=== PATIENT | female | born 1955 | race American Indian/Alaskan Native ===

== ENCOUNTER 2018-02-27 08:23 | Inpatient (IN) | payer MEDICARE ==
[2018-02-27] MEDS ORDERED: MOTRIN PO ONE ×2 (09:20→09:22)
--- NOTE | 2018-02-27 09:22 | Emergency Department Report ---
Blank Doc - Documentation Documentation: Patient is a 62-year-old female who is presenting with right calf pain. Patient states that for the past 3 days she's had some achiness in the posterior right calf. Patient denies any trauma fevers or chills. Patient denies any chest pain but does state she has some mild shortness of breath which is chronic. Patient will be moved to results waiting will have ultrasound of her right lower extremity performed.
--- NOTE | 2018-02-27 10:45 | Emergency Department Report ---
ED Shortness of Breath HPI - General Chief Complaint: Extremity Injury, Lower Stated Complaint: RIGHT LEG PAIN Time Seen by Provider: 02/27/18 09:17 Source: patient Mode of arrival: Ambulatory Limitations: No Limitations - History of Present Illness Initial Comments: Previously healthy 62-year-old woman, presents with 3-4 day history of spontaneous onset of pain and swelling and right lower extremity, particularly calf, as well as middle and proximal thigh. She also has some shortness of breath, even little bit at rest, but worsening when she is up and mildly exertional, such as walking. She has no prior history of venous thromboembolism , pulmonary disease, asthma, no history of smoking, no cardiac history, no stroke history, and no history of diabetes. Patient had gastric bypass surgery in 2009, with lowest weight attained 298, and patient had GJ revision Sep 2017 for persistent reflux. patient weight at that time 289 lbs. . Patient describes discomfort as a moderate ache, in 4-5 out of 10, which is constant, exacerbated by movement, not relieved by anything him a such as use of heating pads. Pain does not radiate. She has not had any fever chills or diaphoresis. Past medical history significant primarily for chronic lower back pain, with some radicular symptoms as well. MD Complaint: shortness of breath Onset/Timin -: days(s) Pain Scale: 5 Quality: aching Consistency: constant Improves With: nothing Worsens With: exertion Associated Symptoms: lower extremity pain Treatments Prior to Arrival: none - Related Data Home Oxygen Therapy: No Home Medications Medication Instructions Recorded Confirmed Last Taken Alendronate Sodium 70 mg PO QWEEK 07/22/17 09/28/17 Unknown Cyanocobalamin (Vitamin B-12) 2,500 mcg PO DAILY 07/22/17 09/28/17 Unknown [Vitamin B12] Ferrous Sulfate [Feosol] 325 mg PO QDAY 07/22/17 09/28/17 Unknown Gabapentin 600 mg PO TID 07/22/17 09/28/17 Unknown HYDROcodone/APAP 7.5-325 [[place] 1 each PO Q6HR PRN 07/22/17 09/28/17 Unknown 7.5/325] Multivitamin [Multiple Vitamins] 1 each PO DAILY 07/22/17 09/28/17 Unknown Nortriptyline HCl 25 mg PO BID 07/22/17 09/28/17 Unknown Omeprazole 40 mg PO DAILY PRN 07/22/17 09/28/17 Unknown Simvastatin 20 mg PO DAILY 07/22/17 09/28/17 Unknown Tizanidine HCl 2 mg PO BID 07/22/17 09/28/17 Unknown Triamter/Hctz 37.5-25 mg 1 tab PO QDAY 07/22/17 09/28/17 Unknown [Maxzide-25] Allergies Allergy/AdvReac Type Severity Reaction Status Date / Time No Known Allergies Allergy Verified 09/28/17 15:45 ED Review of Systems ROS: Stated complaint: RIGHT LEG PAIN Other details as noted in HPI Comment: All other systems reviewed and negative Constitutional: denies: chills, fever ENT: denies: ear pain, throat pain Respiratory: see HPI, shortness of breath, SOB with exertion. denies: cough, wheezing Cardiovascular: dyspnea on exertion. denies: chest pain, syncope, paroxysmal nocturnal dyspnea Endocrine: no symptoms reported Gastrointestinal: denies: abdominal pain, nausea, diarrhea Genitourinary: denies: urgency, dysuria, discharge Musculoskeletal: as per HPI, other (swelling and pain, right lower extremity) Skin: denies: rash, lesions Neurological: denies: headache, weakness, paresthesias Psychiatric: denies: anxiety, depression Hematological/Lymphatic: denies: easy bleeding, easy bruising ED Past Medical Hx - Past Medical History Hx Hypertension: Yes Hx CVA: Yes Hx Arthritis: Yes Hx HIV: No Additional medical history: Low back pain, radicular symptoms - Surgical History Additional Surgical History: partial hysterectomy; bariatric 2012 bilateral knee replacement surgery - Social History Smoking Status: Former Smoker Substance Use Type: None - Medications Home Medications: Home Medications Medication Instructions Recorded Confirmed Last Taken Type Alendronate Sodium 70 mg PO QWEEK 07/22/17 09/28/17 Unknown History Cyanocobalamin (Vitamin B-12) 2,500 mcg PO DAILY 07/22/17 09/28/17 Unknown History [Vitamin B12] Ferrous Sulfate [Feosol] 325 mg PO QDAY 07/22/17 09/28/17 Unknown History Gabapentin 600 mg PO TID 07/22/17 09/28/17 Unknown History HYDROcodone/APAP 7.5-325 [[place] 1 each PO Q6HR PRN 07/22/17 09/28/17 Unknown History 7.5/325] Multivitamin [Multiple Vitamins] 1 each PO DAILY 07/22/17 09/28/17 Unknown History Nortriptyline HCl 25 mg PO BID 07/22/17 09/28/17 Unknown History Omeprazole 40 mg PO DAILY PRN 07/22/17 09/28/17 Unknown History Simvastatin 20 mg PO DAILY 07/22/17 09/28/17 Unknown History Tizanidine HCl 2 mg PO BID 07/22/17 09/28/17 Unknown History Triamter/Hctz 37.5-25 mg 1 tab PO QDAY 07/22/17 09/28/17 Unknown History [Maxzide-25] ED Physical Exam - General Limitations: No Limitations General appearance: alert, in no apparent distress - Head Head exam: Present: atraumatic, normocephalic - Eye Eye exam: Present: PERRL, EOMI - ENT ENT exam: Present: normal exam - Neck Neck exam: Present: normal inspection. Absent: tenderness - Respiratory Respiratory exam: Present: normal lung sounds bilaterally. Absent: respiratory distress, wheezes, rales, rhonchi, chest wall tenderness - Cardiovascular Cardiovascular Exam: Present: regular rate, normal rhythm. Absent: systolic murmur, diastolic murmur, rubs, gallop - GI/Abdominal GI/Abdominal exam: Present: soft, normal bowel sounds. Absent: tenderness - Rectal Rectal exam: Present: deferred - Expanded Lower Extremity Exam Right Hip exam: Present: full ROM. Absent: normal inspection (obese, adipose, secondary to prior morbid obesity), tenderness Upper Leg exam: Present: tenderness (mild to moderate, generalized, nonlocalized , without cords), swelling (difficult to assess, primarily obese secondary to adiposity of morbid obesity) Knee exam: Present: full ROM (prior TKA scar) Lower Leg exam: Present: tenderness (Per Rogel, no palpable cords). Absent: normal inspection (significant bilateral adiposity secondary to prior morbid obesity), palpable cord Foot/Toe exam: Present: normal inspection Neuro vascular tendon exam: Present: no vascular compromise. Absent: motor deficit, sensory deficit - Back Exam Back exam: Present: normal inspection, tenderness (bilateral lumbosacral myofascial tissue, mild) - Neurological Exam Neurological exam: Present: alert, oriented X3, CN II-XII intact. Absent: motor sensory deficit - Psychiatric Psychiatric exam: Present: normal affect, normal mood - Skin Skin exam: Present: warm, dry, intact ED Course Vital Signs 02/27/18 02/27/18 02/27/18 08:51 09:27 10:36 Temperature 36.6 C Pulse Rate 122 H 106 H Respiratory 18 16 22 Rate Blood Pressure 144/88 Blood Pressure 144/88 [Right] O2 Sat by Pulse 98 96 Oximetry 02/27/18 10:51 Temperature Pulse Rate Respiratory Rate Blood Pressure 126/78 Blood Pressure [Right] O2 Sat by Pulse 77 L Oximetry - Reevaluation(s) Reevaluation #1: 02/27/18 12:27 Patient is stable, but still symptomatic with shortness of breath, no chest pain , but does report arm discomfort from infusion of potassium, which was treated with increase of fluid rate, as well as local intravenous anesthesia with 20 mg of 2% lidocaine by local injection by myself for direct comfort. However, there was significant leakage, name was considered unstable, infusion was discontinued, and right antecubital IV was discontinued. 02/27/18 12:34 This is - Consultations Consultation #1: 02/27/18 12:28 Dr. Richardson, hospitalist diamond sander, contacted for findings of bilateral pulmonary emboli with significant clot burden, as well as right heart strain and hypokalemia. Consultation #2: 02/27/18 12:42 This VANDA Bello, for Dr. Morgan Barcenas, Vascular surgeon, with consult for evaluation of possible intravascular lysis. ED Medical Decision Making - Lab Data Result diagrams: 02/27/18 10:45 02/27/18 10:45 - EKG Data -: EKG Interpreted by Or EKG shows normal: sinus rhythm (93 bpm), axis (left axis deviation, -40), intervals (nonspecific intraventricular conduction delay, QRS interval 115 ms, QT interval prolonged at 528 ms corrected.), QRS complexes (nonspecific IVCD), ST-T waves (no significant ST or T-wave changes.) Rate: normal - Radiology Data Radiology results: report reviewed (initial duplex Doppler scan of lower extremity was significant for extensive acute thrombus throughout the venous system of the lower leg.) Chest x-ray shows no acute cardiopulmonary abnormality, no lobar consolidation, no pulmonary vascular congestion. CT angiography of the chest was positive for bilateral pulmonary emboli, with extensive findings in both lung phipps, which represented a significant burden, but there was no finding of acute saddle embolism in the pulmonary arch. - Medical Decision Making This patient with extensive acute embolism of the right lower extremity, as well as bilateral pulmonary emboli, will need hospitalization for acute treatment, and will be admitted to the hospitalist, and consultation initiated with vascular surgery for possible advanced clot lysis. Patient also has significant hypokalemia, with potassium 2.6, which also requires replenishment as well. Patient has findings of heart strain with elevated BNP, elevated troponin level, with a classification of submassive bilateral pulmonary emboli. Vital signs remained stable, and patient has good oxygenation with no acute respiratory distress. - Differential Diagnosis venous thromboembolism, Critical Care Time: Yes (massive pulmonary embolism, heart failure) Critical care time in (mins) excluding proc time.: 30 Critical care attestation.: If time is entered above; I have spent that time in minutes in the direct care of this critically ill patient, excluding procedure time. Critical Care Time: 30 minutes of critical care time was provided and diagnosing and stabilizing this patient's condition with altered diagnosis of extensive thromboembolism with right lower extremity, with extensive bilateral ulnar emboli and clot burden, with evidence of right heart strain. No billable procedures were performed during this patient encounter. ED Disposition Clinical Impression: Venous thromboembolism (VTE) in patient 61 to 74 years of age, Pulmonary embolism, bilateral, Troponin level elevated, Elevated brain natriuretic peptide (BNP) level Disposition: 09 OP ADMIT IP TO THIS HOSP Is pt being admited?: Yes Does the pt Need Aspirin: No Condition: Stable Instructions: Venous Thromboembolism (ED) Referrals: Emily HUA [Other] - 3-5 Days Time of Disposition: 12:30
[2018-02-27 10:48] LABS: Basophils % (Auto) 0.2 % (0.0-1.8); Eosinophils % (Auto) 0.1 % (0.0-4.3); Hematocrit 42.8 % (30.3-42.9); Hemoglobin 13.7 gm/dl (10.1-14.3); Lymphocytes # (Auto) 1.4 K/mm3 (1.2-5.4); Lymphocytes % (Auto) 14.9 % (13.4-35.0); Mean Corpuscular HGB Conc 32 % (30-34); Mean Corpuscular Hemoglobin 29 pg (28-32); Mean Corpuscular Volume 90 fl (79-97); Monocytes # (Auto) 0.7 K/mm3 (0.0-0.8); Platelet Count 180 K/mm3 (140-440); Red Blood Count 4.73 M/mm3 (3.65-5.03); Red Cell Distribution Width 15.3 % (13.2-15.2)
[2018-02-27 10:54] LABS: INR 1.11 (0.87-1.13); Partial Thromboplastin Time 30.2 Sec. (24.2-36.6)
[2018-02-27 11:09] LABS: BUN/Creatinine Ratio 30; Blood Urea Nitrogen 15 mg/dL (7-17); Calcium 7.9 mg/dL (8.4-10.2); Hemolysis Index 76
--- NOTE | 2018-02-27 11:20 | XRay Report ---
ROUTINE CHEST, TWO VIEWS: HISTORY: Difficulty breathing. The trachea, heart, mediastinal contour, lung phipps and bony thorax are unremarkable. IMPRESSION: Unremarkable chest x-ray.
[2018-02-27 11:35] LABS: Chol/HDL Ratio 2.03 %
[2018-02-27] MEDS ORDERED: KCL 10MEQ/100ML 10 MEQ/100 ML BAG IV ONE (11:39)
[2018-02-27] MEDS ORDERED: D5W/0.45% NACL/KCL 20 MEQ 20 MEQ/1,000 ML BAG IV SCH (12:00)
--- NOTE | 2018-02-27 12:15 | Cat Scan Report ---
CTA CHEST: HISTORY: Dyspnea, DVT. COMPARISON: none. TECHNIQUE: Helical CT in 1.25mm intervals following IV contrast. Pulmonary embolus protocol. Sagittal and coronal reformatted images. Rotational MIP images. FINDINGS: Contrast bolus is satisfactory. Moderate near occlusive and nonocclusive emboli are identified in the second and third order arterial branches leading to all lobes of both lungs. No saddle embolus. Thyroid gland: Normal. Tracheobronchial tree: Normal. Esophagus: Normal. Heart: The heart is normal size overall although mild dilatation of the right ventricle is suspected. Pericardium: Normal. Mediastinum: Normal. Lung Bravo: Normal. Pleural Spaces: Normal. Musculoskeletal: Normal. IMPRESSION: Positive for pulmonary embolus as described above. These findings were discussed with Dr. Landon in the emergency department at 1203 hrs.
[2018-02-27] MEDS ORDERED: XYLOCAINE CARDIAC IV ONE (12:20)
[2018-02-27] MEDS ORDERED: TYLENOL PO PRN (12:46)
[2018-02-27] MEDS ORDERED: ZOFRAN IV PRN (12:46)
[2018-02-27] MEDS ORDERED: SODIUM CHLORIDE FLUSH SYRINGE 10 ML IV PRN ×2 (12:46→21:40)
--- NOTE | 2018-02-27 13:42 | Consultation ---
History of Present Illness - Reason for Consult Consult date: 02/27/18 sub-massive pulmonary embolism - History of Present Illness Patient presents with a several week history of worsening leg pain that developed into shortness of breath with exertion. She presents to the ER today complaining of worsening right leg pain and on CT scan was found to have a sub- massive pulmonary embolus with an elevated RV LV ratio, troponin leak and satting on room air 70%. Additionally, the patient is tachycardic. Past History Past Surgical History: bowel surgery Social history: no significant social history Family history: no significant family history Medications and Allergies Allergies Allergy/AdvReac Type Severity Reaction Status Date / Time No Known Allergies Allergy Verified 09/28/17 15:45 Home Medications Medication Instructions Recorded Confirmed Last Taken Type Alendronate Sodium 70 mg PO QWEEK 07/22/17 09/28/17 Unknown History Cyanocobalamin (Vitamin B-12) 2,500 mcg PO DAILY 07/22/17 09/28/17 Unknown History [Vitamin B12] Ferrous Sulfate [Feosol] 325 mg PO QDAY 07/22/17 09/28/17 Unknown History Gabapentin 600 mg PO TID 07/22/17 09/28/17 Unknown History HYDROcodone/APAP 7.5-325 [[place] 1 each PO Q6HR PRN 07/22/17 09/28/17 Unknown History 7.5/325] Multivitamin [Multiple Vitamins] 1 each PO DAILY 07/22/17 09/28/17 Unknown History Nortriptyline HCl 25 mg PO BID 07/22/17 09/28/17 Unknown History Omeprazole 40 mg PO DAILY PRN 07/22/17 09/28/17 Unknown History Simvastatin 20 mg PO DAILY 07/22/17 09/28/17 Unknown History Tizanidine HCl 2 mg PO BID 07/22/17 09/28/17 Unknown History Triamter/Hctz 37.5-25 mg 1 tab PO QDAY 07/22/17 09/28/17 Unknown History [Maxzide-25] Active Meds: Active Medications Acetaminophen (Tylenol) 650 mg PO Q4H PRN PRN Reason: Pain MILD(1-3)/Fever >100.5/TERRY Potassium Chloride/Dextrose/Sod Cl (D5w/0.45% Nacl/Kcl 20 Meq) 20 meq in 1,000 mls @ 75 mls/hr IV DIRECT DAVIE Stop: 02/27/18 14:00 Last Admin: 02/27/18 12:29 Dose: 75 mls/hr Ondansetron HCl (Zofran) 4 mg IV Q8H PRN PRN Reason: Nausea And Vomiting Sodium Chloride (Sodium Chloride Flush Syringe 10 Ml) 10 ml IV BID DAVIE Sodium Chloride (Sodium Chloride Flush Syringe 10 Ml) 10 ml IV PRN PRN PRN Reason: LINE FLUSH Review of Systems All systems: negative Exam - Constitutional Vitals: Temp Pulse Resp BP Pulse Ox 98.7 F 106 H 22 126/78 77 L 02/27/18 08:51 02/27/18 10:36 02/27/18 10:36 02/27/18 10:51 02/27/18 10:51 General appearance: Present: no acute distress - EENT Eyes: Present: PERRL ENT: hearing intact - Neck Neck: Present: supple, normal ROM - Respiratory Respiratory effort: normal - Cardiovascular Rhythm: regular - Extremities Extremities: no ischemia - Abdominal General gastrointestinal: Present: deferred - Rectal Rectal Exam: deferred - Psychiatric Psychiatric: appropriate mood/affect, cooperative - Neurologic Neurologic: no focal deficits Results - Labs CBC & Chem 7: 02/27/18 10:45 02/27/18 10:45 Labs: Abnormal lab results 02/27/18 02/27/18 02/27/18 Range/Units 10:45 10:45 10:45 RDW 15.3 H (13.2-15.2) % Seg Neutrophils % 77.8 H (40.0-70.0) % Sodium 147 H (137-145) mmol/L Potassium 2.6 L* (3.6-5.0) mmol/L Creatinine 0.5 L (0.7-1.2) mg/dL Calcium 7.9 L (8.4-10.2) mg/dL Troponin T 0.039 H (0.00-0.029) ng/mL NT-Pro-B Natriuret Pep 4052 H (0-900) pg/mL LDL Cholesterol Direct 45 L (50-130) mg/dL - Imaging and Cardiology CT scan - chest: report reviewed, image reviewed Assessment and Plan Patient with a history of submassive pulmonary embolism. Discussion with patient regarding thrombolytics catheter placement risks and benefits. She has no recent surgeries or history of CVA. No history of cancer.
[2018-02-27] MEDS ORDERED: SUBLIMAZE ONE (14:00)
[2018-02-27] MEDS ORDERED: VERSED ONE (14:00)
[2018-02-27] MEDS ORDERED: HEPARIN/ 0.45% NACL-25,000 UNIT/500 ML 25,000 UNIT/500 ML BAG SHEATH SCH ×2 (14:00)
[2018-02-27] MEDS ORDERED: NACL 0.9% 1000 ML 1,000 ML EKOSCLUMEN SCH ×2 (14:00)
[2018-02-27] MEDS ORDERED: NACL 0.9% 1000 ML 1,000 ML IV SCH (14:00)
[2018-02-27] MEDS ORDERED: NACL 0.9% 1000 ML 1,000 ML SHEATH SCH ×2 (14:00)
[2018-02-27] MEDS ORDERED: HEPARIN/NS 5000 UNIT/500ML(CATH LAB) 1,000 ML IR ONE (14:00)
[2018-02-27] MEDS ORDERED: XYLOCAINE 1% 20 mL ONE (14:00)
[2018-02-27] MEDS ORDERED: WATER FOR INJ (PF) 10 ML ONE (14:01)
[2018-02-27] MEDS ORDERED: HEPARIN/ 0.45% NACL-25,000 UNIT/500 ML 50,000 UNIT/1,000 ML BAG ONE (14:41)
[2018-02-27] MEDS ORDERED: NACL 0.9% 1000 ML 2,000 ML ONE (14:41)
[2018-02-27] MEDS: HEPARIN 10,000 UNITS/10 ML ONE ×2 (14:56→15:04)
[2018-02-27] MEDS: CATHFLO ONE ×2 (14:57→15:03)
[2018-02-27] MEDS ORDERED: CATHFLO 10 MG in NACL 0.9% 250ML 250 ML EKOSDLUMEN SCH (15:00)
--- NOTE | 2018-02-27 15:13 | Operative Report ---
Operative Report Operative Report: EXAM: PULMONARY ANGIOGRAPHY AND PLACEMENT OF BILATERAL THROMBOLYTICS CATHETERS CLINICAL INDICATION: PATIENT WITH SUBMASSIVE PULMONARY EMBOLUS DATE: 02/27/2018 PROCEDURE: Following an explanation of the risks, benefits and alternatives; written informed consent was obtained. The patient was brought to the angiographic suite and placed in supine position on the examination table. Initial ultrasound evaluation of the leg demonstrated a patent right common femoral vein. The patient's right leg and groin were prepped and draped in the usual sterile fashion. 1% lidocaine was used for anesthesia. Under ultrasound guidance, the right common femoral vein was cannulated with a 7 cm 18-gauge needle. A 0.035 guidewire was advanced centrally. A second access site was obtained under ultrasound guidance in the common femoral vein 2 cm below the first access site and a second 0.035 guidewire advanced centrally. Following removal of the needle, 6 Hebrew sheaths were placed over both access wires. A JR4 coronary guided cath was advanced over the 0.035 guidewire and together the guidewire and catheter advanced to the right atrium. The guidewire was advanced through the tricuspid valve and the catheter advanced over the guidewire. The catheter was then directed towards the main pulmonary artery and the guidewire and catheter advanced into the main pulmonary artery and under fluoroscopy, advanced into the left lower lobe pulmonary artery. The guidewire was removed. There was a gentle injection of contrast to document appropriate positioning. Guidewire was reinserted and the catheter removed. The thrombolytics catheter was then advanced over the guidewire and positioned with the tip placed in the left lower lobe pulmonary artery with proximal aspect of the left main pulmonary artery. The infusion wire was then advanced through the catheter locked in place JR4 was then advanced over the second guidewire and together the guidewire and catheter advanced in a similar fashion as above with the guidewire and catheter being advanced into the right lower lobe pulmonary artery. Contrast was again injected gently to document appropriate positioning. The catheter was removed over the guidewire and the thrombolytics catheter advanced over the guidewire to position the tip in the right lower lobe pulmonary artery and proximal aspect in the right main pulmonary artery. The guidewire was removed and the infusion wire advanced through the catheter and locked in place. The sheaths were securely fasten the skin surface using 2-0 Ethilon suture. The thrombolytics catheters were then securely fastened to the sheaths using 2- 0 Ethilon suture and sterile dressings applied over the entire area. Both catheters were primed using 2 mg of TPA and pulse sheaths were flushed using 2000 units of heparin. The patient tolerated the procedure well. There were no immediate post procedure complications. Conscious sedation was performed under the guidance of radiologic nursing. Continuous cardiopulmonary monitoring was utilized IMPRESSION: 1) Pulmonary angiography which on the left demonstrated significant thrombus extending into the left lower lobe pulmonary arteries. 2) Placement of bilateral 12 cm infusion length 106 cm total length EKOS catheters.
--- NOTE | 2018-02-27 15:13 | History and Physical Report ---
History of Present Illness Date of examination: 02/27/18 Date of admission: 02/27/18 Chief complaint: Chief complaint: Shortness of breath for 4 days Right lower extremity swelling for 4 days History of present illness: History of Present Illness: Previously healthy 62-year-old woman, presents with 3-4 day history of spontaneous onset of pain and swelling and right lower extremity, particularly calf, as well as middle and proximal thigh. She also has some shortness of breath, even little bit at rest, but worsening when she is up and mildly exertional, such as walking. She has no prior history of venous thromboembolism , pulmonary disease, asthma, no history of smoking, no cardiac history, no stroke history, and no history of diabetes. Patient had gastric bypass surgery in 2009, with lowest weight attained 298, and patient had GJ revision Sep 2017 for persistent reflux. patient weight at that time 289 lbs. .Patient describes discomfort as a moderate ache, in 4-5 out of 10, which is constant, exacerbated by movement, not relieved by anything him a such as use of heating pads. Pain does not radiate. She has not had any fever chills or diaphoresis. Past medical history significant primarily for chronic lower back pain, with some radicular symptoms as well. MD Complaint: shortness of breath Onset/Timin-: days(s) Pain Scale: 5 Quality: aching Consistency: constant Improves With: rest Worsens With: exertion Associated Symptoms: lower extremity pain Treatments Prior to Arrival: none Past Medical History Hx Hypertension: Yes Hx CVA: Yes Hx Arthritis: Yes Additional medical history: Low back pain, radicular symptoms Surgical History Additional Surgical History: partial hysterectomy; bariatric 2012 bilateral knee replacement surgery Social History Smoking Status: Former Smoker Substance Use Type: None Family history Hypertension Medications Home Medications: Home Medications Medication Instructions Recorded Confirmed Last Taken Type Alendronate Sodium 70 mg PO QWEEK 07/22/17 09/28/17 Unknown History Cyanocobalamin (Vitamin B-12) 2,500 mcg PO DAILY 07/22/17 09/28/17 Unknown History [Vitamin B12] Ferrous Sulfate [Feosol] 325 mg PO QDAY 07/22/17 09/28/17 Unknown History Gabapentin 600 mg PO TID 07/22/17 09/28/17 Unknown History HYDROcodone/APAP 7.5-325 [[place] 1 each PO Q6HR PRN 07/22/17 09/28/17 Unknown History 7.5/325] Multivitamin [Multiple Vitamins] 1 each PO DAILY 07/22/17 09/28/17 Unknown History Nortriptyline HCl 25 mg PO BID 07/22/17 09/28/17 Unknown History Omeprazole 40 mg PO DAILY PRN 07/22/17 09/28/17 Unknown History Simvastatin 20 mg PO DAILY 07/22/17 09/28/17 Unknown History Tizanidine HCl 2 mg PO BID 07/22/17 09/28/17 Unknown History Triamter/Hctz 37.5-25 mg 1 tab PO QDAY 07/22/17 09/28/17 Unknown History [Maxzide-25] Review of Systems ROS: Stated complaint: RIGHT LEG PAIN Other details as noted in HPI Comment: All other systems reviewed and negative Constitutional: denies: chills, fever ENT: denies: ear pain, throat pain Respiratory: see HPI, shortness of breath, SOB with exertion. denies: cough, wheezing Cardiovascular: dyspnea on exertion. denies: chest pain, syncope, paroxysmal nocturnal dyspnea Endocrine: no symptoms reported Gastrointestinal: denies: abdominal pain, nausea, diarrhea Genitourinary: denies: urgency, dysuria, discharge Musculoskeletal: as per HPI, other (swelling and pain, right lower extremity) Skin: denies: rash, lesions Neurological: denies: headache, weakness, paresthesias Psychiatric: denies: anxiety, depression Hematological/Lymphatic: denies: easy bleeding, easy bruising Past History Past Surgical History: bowel surgery Social history: no significant social history Family history: no significant family history Medications and Allergies Allergies Allergy/AdvReac Type Severity Reaction Status Date / Time No Known Allergies Allergy Verified 09/28/17 15:45 Home Medications Medication Instructions Recorded Confirmed Last Taken Type Alendronate Sodium 70 mg PO QWEEK 07/22/17 02/27/18 02/24/18 History Ferrous Sulfate [Feosol] 325 mg PO QDAY 07/22/17 02/27/18 Unknown History Gabapentin 1,200 mg PO HS 07/22/17 02/27/18 Unknown History Multivitamin [Multiple Vitamins] 1 each PO DAILY 07/22/17 02/27/18 Unknown History Nortriptyline HCl 50 mg PO HS 07/22/17 02/27/18 Unknown History Omeprazole 40 mg PO DAILY PRN 07/22/17 02/27/18 Unknown History Simvastatin 20 mg PO DAILY 07/22/17 02/27/18 Unknown History Tizanidine HCl 2 mg PO BID PRN 07/22/17 02/27/18 Unknown History Furosemide [Lasix TAB] 40 mg PO QDAY 02/27/18 02/27/18 Unknown History Gabapentin [Neurontin] 600 mg PO QAM 02/27/18 02/27/18 Unknown History Potassium Chloride [Klor-Con 8] 8 meq PO QDAY 02/27/18 02/27/18 Unknown History Active Meds: Active Medications Acetaminophen (Tylenol) 650 mg PO Q4H PRN PRN Reason: Pain MILD(1-3)/Fever >100.5/TERRY Alteplase, Recombinant 10 mg/ (Sodium Chloride) 250 mls @ 10 mls/hr EKOSDLUMEN DIRECT DAVIE Alteplase, Recombinant 10 mg/ (Sodium Chloride) 250 mls @ 10 mls/hr IV DIRECT DAVIE Heparin Sodium/Sodium Chloride (Heparin/ 0.45% Nacl-25,000 Unit/500 Ml) 25,000 unit in 500 mls @ 10 mls/hr SHEATH DIRECT DAVIE; Protocol Heparin Sodium/Sodium Chloride (Heparin/ 0.45% Nacl-25,000 Unit/500 Ml) 25,000 unit in 500 mls @ 10 mls/hr SHEATH DIRECT DAVIE; Protocol Sodium Chloride (Nacl 0.9% 1000 Ml) 1,000 mls @ 30 mls/hr IV DIRECT DAVIE Sodium Chloride (Nacl 0.9% 1000 Ml) 1,000 mls @ 30 mls/hr SHEATH DIRECT DAVIE Sodium Chloride (Nacl 0.9% 1000 Ml) 1,000 mls @ 35 mls/hr EKOSCLUMEN DIRECT DAVIE Sodium Chloride (Nacl 0.9% 1000 Ml) 1,000 mls @ 30 mls/hr SHEATH DIRECT DAVIE Sodium Chloride (Nacl 0.9% 1000 Ml) 1,000 mls @ 35 mls/hr EKOSCLUMEN DIRECT DAVIE Ondansetron HCl (Zofran) 4 mg IV Q8H PRN PRN Reason: Nausea And Vomiting Sodium Chloride (Sodium Chloride Flush Syringe 10 Ml) 10 ml IV BID DAVIE Sodium Chloride (Sodium Chloride Flush Syringe 10 Ml) 10 ml IV PRN PRN PRN Reason: LINE FLUSH Exam - Physical Exam Narrative exam: Lying in bed in mild distress - Constitutional Vitals: Temp Pulse Resp BP Pulse Ox 98.7 F 106 H 20 144/88 92 02/27/18 14:00 02/27/18 14:00 02/27/18 14:00 02/27/18 14:00 02/27/18 14:00 General appearance: Present: no acute distress, well-nourished - EENT Eyes: Present: PERRL ENT: hearing intact, clear oral mucosa - Neck Neck: Present: supple, normal ROM - Respiratory Respiratory effort: normal Respiratory: bilateral: CTA - Cardiovascular Heart rate: 96 Rhythm: regular Heart Sounds: Present: S1 & S2. Absent: rub, click - Extremities Extremities: no ischemia, pulses intact, pulses symmetrical, No edema, abnormal (right lower extremity is swollen from her mid thigh to ankle) Peripheral Pulses: within normal limits - Abdominal General gastrointestinal: Present: soft, non-tender, non-distended, normal bowel sounds Female genitourinary: Present: normal - Integumentary Integumentary: Present: clear, warm, dry - Musculoskeletal Musculoskeletal: gait normal, strength equal bilaterally - Psychiatric Psychiatric: appropriate mood/affect, intact judgment & insight - Neurologic Neurologic: CNII-XII intact, moves all extremities Results - Labs CBC & Chem 7: 02/27/18 10:45 02/27/18 16:35 Labs: Laboratory Last Values WBC 9.5 K/mm3 (4.5-11.0) 02/27/18 10:45 RBC 4.73 M/mm3 (3.65-5.03) 02/27/18 10:45 Hgb 13.7 gm/dl (10.1-14.3) 02/27/18 10:45 Hct 42.8 % (30.3-42.9) 02/27/18 10:45 MCV 90 fl (79-97) 02/27/18 10:45 MCH 29 pg (28-32) 02/27/18 10:45 MCHC 32 % (30-34) 02/27/18 10:45 RDW 15.3 % (13.2-15.2) H 02/27/18 10:45 Plt Count 180 K/mm3 (140-440) 02/27/18 10:45 Lymph % (Auto) 14.9 % (13.4-35.0) 02/27/18 10:45 [place] % (Auto) 7.0 % (0.0-7.3) 02/27/18 10:45 Eos % (Auto) 0.1 % (0.0-4.3) 02/27/18 10:45 Baso % (Auto) 0.2 % (0.0-1.8) 02/27/18 10:45 Lymph # 1.4 K/mm3 (1.2-5.4) 02/27/18 10:45 [place] # 0.7 K/mm3 (0.0-0.8) 02/27/18 10:45 Eos # 0.0 K/mm3 (0.0-0.4) 02/27/18 10:45 Baso # 0.0 K/mm3 (0.0-0.1) 02/27/18 10:45 Seg Neutrophils % 77.8 % (40.0-70.0) H 02/27/18 10:45 Seg Neutrophils # 7.3 K/mm3 (1.8-7.7) 02/27/18 10:45 PT 14.9 Sec. (12.2-14.9) 02/27/18 10:45 INR 1.11 (0.87-1.13) 02/27/18 10:45 APTT 30.2 Sec. (24.2-36.6) 02/27/18 10:45 Sodium 147 mmol/L (137-145) H 02/27/18 10:45 Potassium 2.6 mmol/L (3.6-5.0) L* 02/27/18 10:45 Chloride 103.5 mmol/L (98-107) 02/27/18 10:45 Carbon Dioxide 29 mmol/L (22-30) 02/27/18 10:45 Anion Gap 17 mmol/L 02/27/18 10:45 BUN 15 mg/dL (7-17) 02/27/18 10:45 Creatinine 0.5 mg/dL (0.7-1.2) L 02/27/18 10:45 Estimated GFR > 60 ml/min 02/27/18 10:45 BUN/Creatinine Ratio 30 % 02/27/18 10:45 Glucose 71 mg/dL (65-100) 02/27/18 10:45 Calcium 7.9 mg/dL (8.4-10.2) L 02/27/18 10:45 Troponin T 0.039 ng/mL (0.00-0.029) H 02/27/18 10:45 NT-Pro-B Natriuret Pep 4052 pg/mL (0-900) H 02/27/18 10:45 Triglycerides 101 mg/dL (2-149) 02/27/18 10:45 Cholesterol 110 mg/dL (50-199) 02/27/18 10:45 LDL Cholesterol Direct 45 mg/dL (50-130) L 02/27/18 10:45 HDL Cholesterol 54 mg/dL (40-59) 02/27/18 10:45 Cholesterol/HDL Ratio 2.03 % 02/27/18 10:45 - Imaging and Cardiology EKG: report reviewed Imaging and Cardiology: EKG Data EKG Interpreted by Sc EKG shows normal: sinus rhythm (93 bpm), axis (left axis deviation, -40), intervals (nonspecific intraventricular conduction delay, QRS interval 115 ms, QT interval prolonged at 528 ms corrected.), QRS complexes (nonspecific IVCD), ST-T waves (no significant ST or T-wave changes.) Rate: normal CT angio chest: FINDINGS: Contrast bolus is satisfactory. Moderate near occlusive and nonocclusive emboli are identified in the second and third order arterial branches leading to all lobes of both lungs. No saddle embolus. Thyroid gland: Normal. Tracheobronchial tree: Normal. Esophagus: Normal. Heart: The heart is normal size overall although mild dilatation of the right ventricle is suspected. Pericardium: Normal. Mediastinum: Normal. Lung Bravo: Normal. Pleural Spaces: Normal. Musculoskeletal: Normal IMPRESSION: Positive for pulmonary embolus as described above. These findings were discussed with Dr. Landon in the emergency department at 1203 hrs. Right lower extremity venous duplex scan RLE VENOUS DUPLEX COMPLETED. [facility] LAB PRELIMINARY REPORT; ACUTE DVT NOTED IN RT. DST SFV, POP V , PTV AND PERONEAL V'S. PHYSICIANS REPORT TO FOLLOW...(RSK) Initialized on 02/27/18 09:56 - END OF NOTE Assessment and Plan Assessment and plan: The high probability of a clinically significant, sudden or life threatening deterioration of the [Pulmonary, cadiac, renal] system(s) required my full and direct attention, intervention and personal management. The aggregate critical care time was [45] minutes. This time is in addition to time spent performing reported procedures but includes the following: [x] Data Review and interpretation [x] Patient assessment and monitoring of vital signs [x] Documentation [x] Medication orders and management Advance Directives: Yes (full code) Plan of care discussed with patient/family: Yes - Patient Problems (1) Pulmonary embolism, bilateral Current Visit: Yes Status: Acute Plan to address problem: Patient has bilateral acute pulmonary embolism Patient initiated on IV heparin bolus and IV heparin standard drip. Patient taken to [facility] for----PULMONARY ANGIOGRAPHY AND PLACEMENT OF BILATERAL THROMBOLYTICS CATHETERS CLINICAL INDICATION: PATIENT WITH SUBMASSIVE PULMONARY EMBOLUS by Dr. Schultz (2) Venous thromboembolism (VTE) in patient 61 to 74 years of age Current Visit: Yes Status: Acute Plan to address problem: Patient on IV heparin drip (3) Hypokalemia Current Visit: Yes Status: Acute Plan to address problem: Supplemented (4) Troponin level elevated Current Visit: Yes Status: Acute Plan to address problem: Secondary to right ventricular strain Cardiac ischemia unlikely We'll get cardiology consult (5) Hyperlipidemia Current Visit: Yes Status: Chronic Qualifiers: Hyperlipidemia type: mixed hyperlipidemia Qualified Code(s): E78.2 - Mixed hyperlipidemia Plan to address problem: Continue statins (6) GERD (gastroesophageal reflux disease) Current Visit: Yes Status: Chronic Qualifiers: Esophagitis presence: without esophagitis Qualified Code(s): K21.9 - Gastro -esophageal reflux disease without esophagitis Plan to address problem: continue PPIs (7) Hypertension Current Visit: Yes Status: Chronic Qualifiers: Hypertension type: essential hypertension Qualified Code(s): I10 - Essential (primary) hypertension Plan to address problem: Continue antihypertensives (8) Peripheral neuropathy Current Visit: Yes Status: Chronic Qualifiers: Peripheral neuropathy type: polyneuropathy, unspecified Qualified Code(s): G62.9 - Polyneuropathy, unspecified Plan to address problem: Continue gabapentin (9) Osteoporosis Current Visit: Yes Status: Chronic Qualifiers: Osteoporosis type: age-related Plan to address problem: Continue alendronate every weekly (10) Anemia Current Visit: Yes Status: Chronic Qualifiers: Anemia type: iron deficiency Plan to address problem: continue ferrous sulfate (11) Depression Current Visit: Yes Status: Chronic Qualifiers: Depression Type: unspecified Qualified Code(s): F32.9 - Major depressive disorder, single episode, unspecified Plan to address problem: Continue nortriptyline (12) Lumbar radiculopathy, chronic Current Visit: Yes Status: Chronic Plan to address problem: Continue [place] (13) Elevated brain natriuretic peptide (BNP) level Current Visit: Yes Status: Acute Plan to address problem: We'll get cardiology consult and echocardiogram (14) DVT prophylaxis Current Visit: Yes Status: Acute Plan to address problem: Patient on heparin drip
[2018-02-27] MEDS: CATHFLO 10 MG in NACL 0.9% 250ML 250 ML IV SCH ×2 (15:50→16:00)
[2018-02-27] MEDS ORDERED: K-DUR PO ONE ×2 (17:27→18:18)
[2018-02-27] MEDS: DILAUDID IV PRN ×2 (21:15→21:35)
[2018-02-27] MEDS ORDERED: XANAX PO PRN (21:40)
[2018-02-27] MEDS ORDERED: AMBIEN PO PRN (21:40)
[2018-02-27] MEDS: KCL 10MEQ/100ML 10 MEQ/100 ML BAG IV SCH ×2 (21:40→23:56)
[2018-02-27] MEDS ORDERED: TIZANIDINE HCL 2 MG PO PRN (21:43)
[2018-02-27] MEDS ORDERED: NON-FORMULARY (Omeprazole [Omeprazole] 40 MG) PO PRN (21:43)
[2018-02-27] MEDS ORDERED: PROTONIX PO PRN (21:54)
[2018-02-27] MEDS ORDERED: ZANAFLEX PO PRN (21:55)
[2018-02-27] MEDS ORDERED: GABAPENTIN 1200 MG PO SCH (22:00)
[2018-02-27] MEDS ORDERED: SODIUM CHLORIDE FLUSH SYRINGE 10 ML IV SCH (22:00)
[2018-02-27] MEDS ORDERED: D5NS 1,000 ML IV SCH (22:00)
[2018-02-27] MEDS: SODIUM CHLORIDE FLUSH SYRINGE 10 ML IV SCH (22:30)
[2018-02-27] MEDS: NEURONTIN PO SCH (23:45)
[2018-02-27] MEDS: FEOSOL PO SCH (23:45)
[2018-02-27] MEDS: LASIX PO SCH (23:46)
[2018-02-27] MEDS: PAMELOR PO SCH (23:47)
[2018-02-28] MEDS: KCL 10MEQ/100ML 10 MEQ/100 ML BAG IV SCH ×4 (01:13→09:48)
[2018-02-28] MEDS: DILAUDID IV PRN ×3 (01:17→10:02)
[2018-02-28 05:27] LABS: Basophils % (Auto) 0.1 % (0.0-1.8); Eosinophils # (Auto) 0.1 K/mm3 (0.0-0.4); Eosinophils % (Auto) 0.9 % (0.0-4.3); Hematocrit 40.3 % (30.3-42.9); Hemoglobin 12.9 gm/dl (10.1-14.3); Lymphocytes # (Auto) 2.3 K/mm3 (1.2-5.4); Lymphocytes % (Auto) 27.3 % (13.4-35.0); Mean Corpuscular HGB Conc 32 % (30-34); Mean Corpuscular Hemoglobin 30 pg (28-32); Mean Corpuscular Volume 92 fl (79-97); Monocytes # (Auto) 0.7 K/mm3 (0.0-0.8); Monocytes % (Auto) 7.8 % (0.0-7.3); Platelet Count 150 K/mm3 (140-440); Red Blood Count 4.36 M/mm3 (3.65-5.03); Red Cell Distribution Width 16.1 % (13.2-15.2)
[2018-02-28 05:37] LABS: Alanine Aminotransferase 24 units/L (7-56); Albumin 2.2 g/dL (3.9-5); BUN/Creatinine Ratio 28; Blood Urea Nitrogen 11 mg/dL (7-17); Calcium 7.2 mg/dL (8.4-10.2); Hemolysis Index 35
[2018-02-28 05:38] LABS: INR 1.19 (0.87-1.13)
[2018-02-28 05:57] LABS: Partial Thromboplastin Time 166.3 Sec. (24.2-36.6)
--- NOTE | 2018-02-28 07:12 | Consultation ---
History of Present Illness Consult date: 02/28/18 Requesting physician: CHAVEZ GRAYSON Reason for consult: pulmonary embolism History of present illness: Previously healthy 62-year-old woman, presents with 3-4 day history of spontaneous onset of pain and swelling and right lower extremity, particularly calf, as well as middle and proximal thigh. She also has some shortness of breath, even little bit at rest, but worsening when she is up and mildly exertional, such as walking. She has no prior history of venous thrombo- embolism, pulmonary disease, asthma, no history of smoking, no cardiac history, no stroke history, and no history of diabetes. Patient had gastric bypass surgery in 2009, with lowest weight attained 298, and patient had GJ revision Sep 2017 for persistent reflux. patient weight at that time 289 lbs. Past medical history significant primarily for chronic lower back pain, with some radicular symptoms as well. She was hypoxic at presentation, with oxygen saturations in the 70s on pulse oximetry and found to have sub-massive pulmonary embolism on CT scan. She is s/p pulmonary angiography and placement of bilateral thrombolytic catheters. Past History Past Surgical History: bowel surgery Social history: no significant social history Family history: no significant family history Medications and Allergies Allergies Allergy/AdvReac Type Severity Reaction Status Date / Time No Known Allergies Allergy Verified 09/28/17 15:45 Home Medications Medication Instructions Recorded Confirmed Last Taken Type Alendronate Sodium 70 mg PO QWEEK 07/22/17 02/27/18 02/24/18 History Ferrous Sulfate [Feosol] 325 mg PO QDAY 07/22/17 02/27/18 Unknown History Gabapentin 1,200 mg PO HS 07/22/17 02/27/18 Unknown History Multivitamin [Multiple Vitamins] 1 each PO DAILY 07/22/17 02/27/18 Unknown History Nortriptyline HCl 50 mg PO HS 07/22/17 02/27/18 Unknown History Omeprazole 40 mg PO DAILY PRN 07/22/17 02/27/18 Unknown History Simvastatin 20 mg PO DAILY 07/22/17 02/27/18 Unknown History Tizanidine HCl 2 mg PO BID PRN 07/22/17 02/27/18 Unknown History Furosemide [Lasix TAB] 40 mg PO QDAY 02/27/18 02/27/18 Unknown History Gabapentin [Neurontin] 600 mg PO QAM 02/27/18 02/27/18 Unknown History Potassium Chloride [Klor-Con 8] 8 meq PO QDAY 02/27/18 02/27/18 Unknown History Active Meds: Active Medications Acetaminophen (Tylenol) 650 mg PO Q4H PRN PRN Reason: Pain MILD(1-3)/Fever >100.5/TERRY Acetaminophen/Hydrocodone Bitart (Kelly 5/325) 2 each PO Q6H PRN PRN Reason: Pain, Moderate (4-6) Alprazolam (Xanax) 0.25 mg PO Q8H PRN PRN Reason: Anxiety Ferrous Sulfate (Feosol) 325 mg PO QDAY DAVIE Last Admin: 02/27/18 23:45 Dose: 325 mg Furosemide (Lasix) 40 mg PO QDAY DAVIE Last Admin: 02/27/18 23:46 Dose: 40 mg Gabapentin (Neurontin) 1,200 mg PO QHS DAVIE Last Admin: 02/27/18 23:45 Dose: 1,200 mg Gabapentin (Neurontin) 600 mg PO QAM [facility] Hydromorphone HCl (Dilaudid) 2 mg IV Q3H PRN PRN Reason: Pain , Severe (7-10) Last Admin: 02/28/18 06:44 Dose: 2 mg Alteplase, Recombinant 10 mg/ (Sodium Chloride) 250 mls @ 10 mls/hr EKOSDLUMEN DIRECT DAVIE Last Admin: 02/27/18 15:45 Dose: 10 mls Alteplase, Recombinant 10 mg/ (Sodium Chloride) 250 mls @ 10 mls/hr IV DIRECT DAVIE Last Admin: 02/27/18 16:00 Dose: 14.8 mls/hr Heparin Sodium/Sodium Chloride (Heparin/ 0.45% Nacl-25,000 Unit/500 Ml) 25,000 unit in 500 mls @ 10 mls/hr SHEATH DIRECT DAVIE; Protocol Last Admin: 02/27/18 15:46 Dose: 10 mls Heparin Sodium/Sodium Chloride (Heparin/ 0.45% Nacl-25,000 Unit/500 Ml) 25,000 unit in 500 mls @ 10 mls/hr SHEATH DIRECT DAVIE; Protocol Last Admin: 02/27/18 15:48 Dose: 10 mls Sodium Chloride (Nacl 0.9% 1000 Ml) 1,000 mls @ 30 mls/hr IV DIRECT DAVIE Last Admin: 02/27/18 16:00 Dose: 30 mls/hr Sodium Chloride (Nacl 0.9% 1000 Ml) 1,000 mls @ 30 mls/hr SHEATH DIRECT DAVIE Sodium Chloride (Nacl 0.9% 1000 Ml) 1,000 mls @ 35 mls/hr EKOSCLUMEN DIRECT DAVIE Last Admin: 02/27/18 15:50 Dose: 30 mls Sodium Chloride (Nacl 0.9% 1000 Ml) 1,000 mls @ 30 mls/hr SHEATH DIRECT DAVIE Sodium Chloride (Nacl 0.9% 1000 Ml) 1,000 mls @ 35 mls/hr EKOSCLUMEN DIRECT DAVIE Last Admin: 02/27/18 15:52 Dose: 30 mls Potassium Chloride (Kcl 10meq/100ml) 10 meq in 100 mls @ 100 mls/hr IV DIRECT DAVIE Stop: 03/02/18 18:59 Last Admin: 02/28/18 02:29 Dose: 100 mls/hr Dextrose/Sodium Chloride (D5ns) 1,000 mls @ 42 mls/hr IV DIRECT DAVIE Potassium Chloride (Kcl 10meq/100ml) 10 meq in 100 mls @ 100 mls/hr IV Q1H DAVIE Stop: 02/28/18 08:59 Multivitamins (Theragran Tab) 1 each PO DAILY [facility] Nortriptyline HCl (Pamelor) 50 mg PO HS [facility] Last Admin: 02/27/18 23:47 Dose: 50 mg Ondansetron HCl (Zofran) 4 mg IV Q8H PRN PRN Reason: Nausea And Vomiting Pantoprazole Sodium (Protonix) 40 mg PO DAILY PRN PRN Reason: Acid reflux Potassium Chloride (K-Dur) 20 meq PO QDAY [facility] Pravastatin Sodium (Pravachol) 40 mg PO DAILY [facility] Sodium Chloride (Sodium Chloride Flush Syringe 10 Ml) 10 ml IV BID [facility] Last Admin: 02/27/18 22:30 Dose: 10 ml Sodium Chloride (Sodium Chloride Flush Syringe 10 Ml) 10 ml IV PRN PRN PRN Reason: LINE FLUSH Tizanidine HCl (Zanaflex) 2 mg PO BID PRN PRN Reason: Muscle Spasm Zolpidem Tartrate (Ambien) 5 mg PO QHS PRN PRN Reason: Sleeplessness Physical Examination Vital signs: Vital Signs Temp Pulse Resp BP Pulse Ox 98.7 F 122 H 18 144/88 98 02/27/18 08:51 02/27/18 08:51 02/27/18 08:51 02/27/18 08:51 02/27/18 08:51 Reviewed General appearance: asleep, other (obese) Eyes: non-icteric ENT: oropharynx moist Neck: supple, no lymphadenopathy, no JVD Effort: mildly labored Ascultation: Bilateral: clear Cardiovascular: regular rate and rhythm, other (S1,S2, no murmurms, gallops or rubs) Gastrointestinal: normoactive bowel sounds, soft, non-tender, non-distended Integumentary: normal, other (EKOS catherte in right femoral) Extremities: no cyanosis, no edema, pulses normal (with dopplers), no ischemia or petechiae Musculoskeletal: no deformities normal mental status, non-focal exam, pupils equal and round, motor strength normal and mood appropriate, affect normal Results - Laboratory Findings CBC and BMP: 02/28/18 04:00 02/28/18 04:00 PT/INR, D-dimer PT 15.8 Sec. (12.2-14.9) H 02/28/18 04:00 INR 1.19 (0.87-1.13) H 02/28/18 04:00 Abnormal lab findings: Abnormal Labs 02/27/18 02/27/18 02/27/18 10:45 10:45 10:45 RDW 15.3 H [place] % (Auto) Seg Neutrophils % 77.8 H PT INR APTT Fibrinogen Sodium 147 H Potassium 2.6 L* Creatinine 0.5 L Calcium 7.9 L AST Troponin T 0.039 H NT-Pro-B Natriuret Pep 4052 H Total Protein Albumin LDL Cholesterol Direct 45 L 02/27/18 02/27/18 02/28/18 14:45 16:35 04:00 RDW 16.1 H [place] % (Auto) 7.8 H Seg Neutrophils % PT INR APTT Fibrinogen 197 L Sodium Potassium 3.3 L D Creatinine Calcium AST Troponin T NT-Pro-B Natriuret Pep Total Protein Albumin LDL Cholesterol Direct 02/28/18 02/28/18 04:00 04:00 RDW [place] % (Auto) Seg Neutrophils % PT 15.8 H INR 1.19 H APTT 166.3 H* Fibrinogen Sodium Potassium 3.5 L Creatinine 0.4 L Calcium 7.2 L AST 187 H Troponin T NT-Pro-B Natriuret Pep Total Protein 5.0 L Albumin 2.2 L LDL Cholesterol Direct - Diagnostic Findings Chest x-ray: image reviewed Assessment and Plan -Acute hypoxemic respiratroy failure -Submassive pulmonary embolism -Obesity -Hypokalemia
[2018-02-28] MEDS: K-DUR PO SCH (09:46)
[2018-02-28] MEDS: SODIUM CHLORIDE FLUSH SYRINGE 10 ML IV SCH ×2 (09:47→21:02)
[2018-02-28] MEDS: LASIX PO SCH (09:47)
[2018-02-28] MEDS: THERAGRAN Tab PO SCH (09:47)
[2018-02-28] MEDS: NEURONTIN PO SCH ×2 (09:47→21:05)
[2018-02-28] MEDS: FEOSOL PO SCH (09:47)
[2018-02-28] MEDS ORDERED: NON-FORMULARY (Gabapentin [Neurontin] 600 MG) PO SCH (10:00)
[2018-02-28] MEDS ORDERED: NON-FORMULARY (Simvastatin [Simvastatin] 20 MG) PO SCH (10:00)
[2018-02-28] MEDS ORDERED: NON-FORMULARY (Multivitamin [Multiple Vitamins] 1 EACH) PO SCH (10:00)
[2018-02-28] MEDS: PRAVACHOL PO SCH (10:29)
[2018-02-28] MEDS ORDERED: HEPARIN/NS 5000 UNIT/500ML(CATH LAB) 1,000 ML IR ONE (12:46)
[2018-02-28] MEDS ORDERED: HEPARIN 10,000 UNITS/10 ML ONE (12:47)
[2018-02-28] MEDS ORDERED: NACL 0.9% 500 ML 500 ML ONE (13:27)
[2018-02-28] MEDS ORDERED: ANCEF/STERILE WATER 2 GM/20 ML 0 GM/0 ML SYRINGE IV ONE (13:27)
[2018-02-28] MEDS: SUBLIMAZE ONE ×2 (13:43→13:51)
[2018-02-28] MEDS: XYLOCAINE 2% INFILTRATI ONE ×2 (13:43→13:52)
[2018-02-28] MEDS: VERSED ONE ×2 (13:43→13:51)
--- NOTE | 2018-02-28 14:16 | Operative Report ---
Operative Report Operative Report: Date of procedure: 02/28/2018 Pre-operative diagnosis: [place] Pulmonary Embolus Status Post Bilateral Pulmonary Artery Thrombolysis Post-operative diagnosis: Same Procedure(s): 1. Follow-up Bilateral Pulmonary Artery Arteriograms 2. Removal of Bilateral Pulmonary Artery Catheters 3. Placement of [place] IVC Filter 4. Radiologic Supervision With Interpretation Surgeon: Morgan Barcenas MD Rotary Dump Operator: None Anesthesia: Local, IV sedation EBL: None Counts: Correct Complications: None Condition: Stable Findings: No Residual Pulmonary Artery Thrombus. Successful placement of IVC filter Specimen: None Indication: The patient is a 62-year-old female presented emergency department with shortness of breath and was found to have several pulmonary embolus with decreased saturations and evidence of right heart strain. She underwent bilateral catheter directed pulmonary artery thrombolysis and returns for removal of the catheters and IVC filter placement. She and her daughter were given the risk, benefits, and alternative procedures symptoms to the procedure. Description of Procedure: The ultrasound catheter was removed from the left and left pulmonary artery catheter and a pulmonary artery arteriogram was performed demonstrating no evidence of residual thrombus. The catheter was then removed leaving the sheath in place. The ultrasound catheter was then removed from the right pulmonary artery catheter and a pulmonary artery arteriogram was performed demonstrating no evidence of residual thrombus. A 0.035 Bentson wire was advanced through this catheter and into the superior vena cava. The catheter was removed as well as the 6 Portuguese sheath. The filter delivery sheath was then advanced into the inferior vena cava and an inferior venacavogram was performed that demonstrated normal caliber of the inferior vena cava as well as the level of the renal veins. It also demonstrated the inferior vena cava was free of thrombus. The delivery catheter was advanced well past the level of the renal veins and the filter was then inserted and positioned with the apex approximately a centimeter below the renal veins. The delivery sheath was withdrawn deploying the filter in place without any evidence of tilt. The delivery sheath as well as the additional 6 Portuguese sheath were removed and pressure was held to achieve hemostasis. The patient tolerated the procedure well, all sponge needle and instrument counts correct, the patient was taken to recovery in stable condition.
[2018-02-28] MEDS ORDERED: MORPHINE IV PRN (14:17)
[2018-02-28] MEDS ORDERED: NORCO 5/325 PO PRN (14:17)
[2018-02-28] MEDS ORDERED: ZOFRAN IV PRN (14:17)
[2018-02-28] MEDS: ELIQUIS PO SCH ×2 (15:43→21:05)
--- NOTE | 2018-02-28 17:07 | Progress Note ---
Assessment and Plan The high probability of a clinically significant, sudden or life threatening deterioration of the [Pulmonary, cadiac, renal] system(s) required my full and direct attention, intervention and personal management. The aggregate critical care time was [45] minutes. This time is in addition to time spent performing reported procedures but includes the following: [x] Data Review and interpretation [x] Patient assessment and monitoring of vital signs [x] Documentation [x] Medication orders and management - Patient Problems (1) Pulmonary embolism, bilateral Current Visit: Yes Status: Acute Plan to address problem: Patient has bilateral acute pulmonary embolism Patient initiated on IV heparin bolus and IV heparin standard drip. Patient taken to [facility] for----PULMONARY ANGIOGRAPHY AND PLACEMENT OF BILATERAL THROMBOLYTICS CATHETERS CLINICAL INDICATION: PATIENT WITH SUBMASSIVE PULMONARY EMBOLUS by Dr. Schultz Date of procedure: 02/28/2018 Pre-operative diagnosis: [place] Pulmonary Embolus Status Post Bilateral Pulmonary Artery Thrombolysis Post-operative diagnosis: Same Procedure(s): 1. Follow-up Bilateral Pulmonary Artery Arteriograms 2. Removal of Bilateral Pulmonary Artery Catheters 3. Placement of [place] IVC Filter 4. Radiologic Supervision With Interpretation (2) Venous thromboembolism (VTE) in patient 61 to 74 years of age Current Visit: Yes Status: Acute Plan to address problem: Patient on IV heparin drip (3) Hypokalemia Current Visit: Yes Status: Acute Plan to address problem: Supplemented (4) Troponin level elevated Current Visit: Yes Status: Acute Plan to address problem: Secondary to right ventricular strain Cardiac ischemia unlikely We'll get cardiology consult (5) Hyperlipidemia Current Visit: Yes Status: Chronic Qualifiers: Hyperlipidemia type: mixed hyperlipidemia Qualified Code(s): E78.2 - Mixed hyperlipidemia Plan to address problem: Continue statins (6) GERD (gastroesophageal reflux disease) Current Visit: Yes Status: Chronic Qualifiers: Esophagitis presence: without esophagitis Qualified Code(s): K21.9 - Gastro -esophageal reflux disease without esophagitis Plan to address problem: continue PPIs (7) Hypertension Current Visit: Yes Status: Chronic Qualifiers: Hypertension type: essential hypertension Qualified Code(s): I10 - Essential (primary) hypertension Plan to address problem: Continue antihypertensives (8) Peripheral neuropathy Current Visit: Yes Status: Chronic Qualifiers: Peripheral neuropathy type: polyneuropathy, unspecified Qualified Code(s): G62.9 - Polyneuropathy, unspecified Plan to address problem: Continue gabapentin (9) Osteoporosis Current Visit: Yes Status: Chronic Qualifiers: Osteoporosis type: age-related Plan to address problem: Continue alendronate every weekly (10) Anemia Current Visit: Yes Status: Chronic Qualifiers: Anemia type: iron deficiency Plan to address problem: continue ferrous sulfate (11) Depression Current Visit: Yes Status: Chronic Qualifiers: Depression Type: unspecified Qualified Code(s): F32.9 - Major depressive disorder, single episode, unspecified Plan to address problem: Continue nortriptyline (12) Lumbar radiculopathy, chronic Current Visit: Yes Status: Chronic Plan to address problem: Continue [place] (13) Elevated brain natriuretic peptide (BNP) level Current Visit: Yes Status: Acute Plan to address problem: We'll get cardiology consult and echocardiogram (14) DVT prophylaxis Current Visit: Yes Status: Acute Plan to address problem: Patient on heparin drip Subjective Date of service: 02/28/18 Principal diagnosis: Acute PE and DVT Interval history: Symptomatically better Objective - Exam Narrative Exam: Lying in bed in mild distress - Constitutional Vitals: Vital Signs - 12hr 02/28/18 02/28/18 02/28/18 05:10 05:20 05:30 Temperature Pulse Rate 96 H 97 H 94 H Pulse Rate [ From Monitor] Pulse Rate [ Right Dorsalis Pedis] Respiratory 12 16 9 L Rate Blood Pressure 103/65 110/54 102/52 O2 Sat by Pulse 100 100 96 Oximetry 02/28/18 02/28/18 02/28/18 05:44 05:51 05:58 Temperature Pulse Rate 91 H 90 Pulse Rate [ 95 H From Monitor] Pulse Rate [ Right Dorsalis Pedis] Respiratory 8 L 7 L 12 Rate Blood Pressure 99/60 O2 Sat by Pulse 100 100 99 Oximetry 02/28/18 02/28/18 02/28/18 06:00 06:11 06:21 Temperature Pulse Rate 91 H 93 H 92 H Pulse Rate [ From Monitor] Pulse Rate [ Right Dorsalis Pedis] Respiratory 10 L 13 13 Rate Blood Pressure 103/44 102/52 103/61 O2 Sat by Pulse 99 100 100 Oximetry 02/28/18 02/28/18 02/28/18 06:30 06:41 06:44 Temperature Pulse Rate 91 H 89 Pulse Rate [ From Monitor] Pulse Rate [ Right [place]alis Pedis] Respiratory 19 18 18 Rate Blood Pressure 111/51 111/51 O2 Sat by Pulse 99 100 Oximetry 02/28/18 02/28/18 02/28/18 06:51 07:00 07:11 Temperature Pulse Rate 89 93 H 88 Pulse Rate [ From Monitor] Pulse Rate [ Right Dorsalis Pedis] Respiratory 6 L 7 L 9 L Rate Blood Pressure 94/49 87/57 87/57 O2 Sat by Pulse 100 99 100 Oximetry 02/28/18 02/28/18 02/28/18 07:21 07:30 07:41 Temperature Pulse Rate 93 H 91 H 94 H Pulse Rate [ From Monitor] Pulse Rate [ Right [place]alis Pedis] Respiratory 5 L 7 L 5 L Rate Blood Pressure 102/63 106/55 106/55 O2 Sat by Pulse 100 100 100 Oximetry 02/28/18 02/28/18 02/28/18 07:50 07:57 08:00 Temperature 98.5 F Pulse Rate 94 H 99 H Pulse Rate [ From Monitor] Pulse Rate [ Right Dorsalis Pedis] Respiratory 6 L 6 L Rate Blood Pressure 95/59 115/48 O2 Sat by Pulse 100 99 Oximetry 02/28/18 02/28/18 02/28/18 08:11 08:21 08:31 Temperature Pulse Rate 87 93 H 93 H Pulse Rate [ From Monitor] Pulse Rate [ Right [place]alis Pedis] Respiratory 7 L 6 L 6 L Rate Blood Pressure 95/59 91/62 112/64 O2 Sat by Pulse 99 99 99 Oximetry 02/28/18 02/28/18 02/28/18 08:41 08:51 09:00 Temperature Pulse Rate 94 H 92 H 93 H Pulse Rate [ 89 From Monitor] Pulse Rate [ 92 H Right Dorsalis Pedis] Respiratory 6 L 6 L 6 L Rate Blood Pressure 91/62 115/47 100/51 O2 Sat by Pulse 98 99 98 Oximetry 02/28/18 02/28/18 02/28/18 09:11 09:21 09:30 Temperature Pulse Rate 90 90 91 H Pulse Rate [ From Monitor] Pulse Rate [ Right [place]alis Pedis] Respiratory 8 L 7 L 8 L Rate Blood Pressure 112/64 92/55 106/63 O2 Sat by Pulse 99 99 100 Oximetry 02/28/18 02/28/18 02/28/18 09:41 09:51 10:00 Temperature Pulse Rate 91 H 93 H 92 H Pulse Rate [ From Monitor] Pulse Rate [ Right [place]alis Pedis] Respiratory 9 L 16 8 L Rate Blood Pressure 106/63 107/47 100/51 O2 Sat by Pulse 100 100 100 Oximetry 02/28/18 02/28/18 02/28/18 10:11 10:21 10:30 Temperature Pulse Rate 87 92 H 92 H Pulse Rate [ From Monitor] Pulse Rate [ Right Dorsalis Pedis] Respiratory 8 L 9 L 16 Rate Blood Pressure 100/51 107/60 110/61 O2 Sat by Pulse 100 100 99 Oximetry 02/28/18 02/28/18 02/28/18 10:41 10:51 11:00 Temperature Pulse Rate 95 H 97 H 86 Pulse Rate [ 89 From Monitor] Pulse Rate [ 89 Right Dorsalis Pedis] Respiratory 13 12 13 Rate Blood Pressure 110/61 112/67 127/73 O2 Sat by Pulse 100 100 99 Oximetry 02/28/18 02/28/18 02/28/18 11:11 11:21 11:30 Temperature Pulse Rate 101 H 96 H 96 H Pulse Rate [ From Monitor] Pulse Rate [ Right Dorsalis Pedis] Respiratory 16 16 13 Rate Blood Pressure 127/73 119/67 118/67 O2 Sat by Pulse 99 100 100 Oximetry 02/28/18 02/28/18 02/28/18 11:41 11:51 12:00 Temperature 98.2 F Pulse Rate 87 87 88 Pulse Rate [ From Monitor] Pulse Rate [ Right [place]alis Pedis] Respiratory 14 7 L 7 L Rate Blood Pressure 118/67 107/64 106/60 O2 Sat by Pulse 100 100 98 Oximetry 02/28/18 02/28/18 02/28/18 12:11 12:21 13:00 Temperature Pulse Rate 82 87 Pulse Rate [ 98 H From Monitor] Pulse Rate [ 98 H Right Dorsalis Pedis] Respiratory 5 L 6 L 15 Rate Blood Pressure 106/60 101/65 O2 Sat by Pulse 98 99 100 Oximetry 02/28/18 02/28/18 02/28/18 14:26 14:28 14:30 Temperature Pulse Rate 93 H 95 H 100 H Pulse Rate [ From Monitor] Pulse Rate [ Right [place]alis Pedis] Respiratory 15 12 21 Rate Blood Pressure 106/60 106/60 120/71 O2 Sat by Pulse 73 L Oximetry 02/28/18 02/28/18 02/28/18 14:31 14:32 14:34 Temperature Pulse Rate 95 H 83 93 H Pulse Rate [ From Monitor] Pulse Rate [ Right [place]alis Pedis] Respiratory 15 19 12 Rate Blood Pressure 138/79 138/79 138/79 O2 Sat by Pulse 96 97 81 L Oximetry 02/28/18 02/28/18 02/28/18 14:36 14:38 14:40 Temperature Pulse Rate 90 79 88 Pulse Rate [ From Monitor] Pulse Rate [ Right Dorsalis Pedis] Respiratory 15 12 11 L Rate Blood Pressure 138/79 138/79 138/79 O2 Sat by Pulse 95 92 94 Oximetry 02/28/18 02/28/18 02/28/18 14:42 14:44 14:46 Temperature Pulse Rate 83 86 87 Pulse Rate [ From Monitor] Pulse Rate [ Right [place]alis Pedis] Respiratory 12 13 16 Rate Blood Pressure 138/79 138/79 138/79 O2 Sat by Pulse 94 94 94 Oximetry 02/28/18 02/28/18 02/28/18 14:48 14:50 14:52 Temperature Pulse Rate 89 87 89 Pulse Rate [ From Monitor] Pulse Rate [ Right Dorsalis Pedis] Respiratory 10 L 13 18 Rate Blood Pressure 138/79 138/79 138/79 O2 Sat by Pulse 95 95 94 Oximetry 02/28/18 02/28/18 02/28/18 14:54 14:56 14:58 Temperature Pulse Rate 100 H 87 86 Pulse Rate [ From Monitor] Pulse Rate [ Right [place]alis Pedis] Respiratory 19 15 15 Rate Blood Pressure 138/79 138/79 138/79 O2 Sat by Pulse 95 95 92 Oximetry 02/28/18 02/28/18 02/28/18 15:00 15:02 15:04 Temperature Pulse Rate 89 72 72 Pulse Rate [ 81 From Monitor] Pulse Rate [ 81 Right Dorsalis Pedis] Respiratory 14 13 7 L Rate Blood Pressure 138/79 114/70 114/70 O2 Sat by Pulse 100 93 94 Oximetry 02/28/18 02/28/18 02/28/18 15:06 15:08 15:10 Temperature Pulse Rate 80 77 79 Pulse Rate [ From Monitor] Pulse Rate [ Right [place]alis Pedis] Respiratory 12 9 L 8 L Rate Blood Pressure 114/70 114/70 114/70 O2 Sat by Pulse 94 94 93 Oximetry 02/28/18 02/28/18 02/28/18 15:12 15:14 15:16 Temperature Pulse Rate 80 77 78 Pulse Rate [ From Monitor] Pulse Rate [ Right Dorsalis Pedis] Respiratory 9 L 9 L 8 L Rate Blood Pressure 114/70 114/70 114/70 O2 Sat by Pulse 93 92 94 Oximetry 02/28/18 02/28/18 02/28/18 15:18 15:20 15:22 Temperature Pulse Rate 82 80 76 Pulse Rate [ From Monitor] Pulse Rate [ Right [place]alis Pedis] Respiratory 11 L 8 L 11 L Rate Blood Pressure 114/70 114/70 114/70 O2 Sat by Pulse 90 95 94 Oximetry 02/28/18 02/28/18 02/28/18 15:24 15:26 15:28 Temperature Pulse Rate 74 82 94 H Pulse Rate [ From Monitor] Pulse Rate [ Right [place] Pedis] Respiratory 10 L 10 L 13 Rate Blood Pressure 114/70 114/70 114/70 O2 Sat by Pulse 94 94 94 Oximetry 02/28/18 02/28/18 02/28/18 15:30 15:32 15:34 Temperature Pulse Rate 103 H 96 H 88 Pulse Rate [ From Monitor] Pulse Rate [ Right [place]alis Pedis] Respiratory 14 17 12 Rate Blood Pressure 114/70 114/70 114/70 O2 Sat by Pulse 95 95 99 Oximetry 02/28/18 02/28/18 02/28/18 15:36 15:37 15:39 Temperature Pulse Rate 86 94 H 80 Pulse Rate [ From Monitor] Pulse Rate [ Right Dorsalis Pedis] Respiratory 11 L 14 10 L Rate Blood Pressure 138/79 138/79 O2 Sat by Pulse 96 95 92 Oximetry 02/28/18 02/28/18 02/28/18 15:41 15:43 15:45 Temperature Pulse Rate 75 94 H 83 Pulse Rate [ From Monitor] Pulse Rate [ Right Dorsalis Pedis] Respiratory 7 L 12 9 L Rate Blood Pressure 138/79 138/79 138/79 O2 Sat by Pulse 96 97 94 Oximetry 02/28/18 02/28/18 02/28/18 15:47 15:49 15:51 Temperature Pulse Rate 78 77 71 Pulse Rate [ From Monitor] Pulse Rate [ Right Dorsalis Pedis] Respiratory 8 L 10 L 8 L Rate Blood Pressure 114/70 114/70 114/70 O2 Sat by Pulse 96 95 94 Oximetry 0602/28/18 02/28/18 15:53 15:55 15:57 Temperature Pulse Rate 76 75 78 Pulse Rate [ From Monitor] Pulse Rate [ Right Dorsalis Pedis] Respiratory 9 L 12 12 Rate Blood Pressure 114/70 114/70 114/70 O2 Sat by Pulse 91 95 93 Oximetry 02/28/18 02/28/18 02/28/18 15:59 16:00 16:40 Temperature Pulse Rate 81 76 Pulse Rate [ 89 From Monitor] Pulse Rate [ 89 Right Dorsalis Pedis] Respiratory 13 9 L 16 Rate Blood Pressure 114/70 116/73 O2 Sat by Pulse 94 94 100 Oximetry General appearance: Present: no acute distress, well-nourished - EENT Eyes: PERRL, EOM intact ENT: hearing intact, clear oral mucosa Ears: bilateral: normal - Neck Neck: supple, normal ROM - Respiratory Respiratory effort: normal Respiratory: bilateral: CTA - Breasts Breasts: normal - Cardiovascular Heart rate: 88 Rhythm: regular Heart Sounds: Present: S1 & S2. Absent: gallop, rub Extremities: no ischemia, pulses intact, No edema, normal color, Full ROM Extremity abnormal: edema (RLE) - Gastrointestinal General gastrointestinal: Present: soft, non-tender, non-distended, normal bowel sounds - Genitourinary Female genitourinary: normal - Integumentary Integumentary: clear, warm, dry - Musculoskeletal Musculoskeletal: 1, strength equal bilaterally - Neurologic Neurologic: moves all extremities - Psychiatric Psychiatric: memory intact, appropriate mood/affect, intact judgment & insight - Labs CBC & Chem 7: 02/28/18 04:00 02/28/18 04:00 Labs: Abnormal lab results 02/27/18 02/28/18 02/28/18 Range/Units 16:35 04:00 04:00 RDW 16.1 H (13.2-15.2) % [place] % (Auto) 7.8 H (0.0-7.3) % PT 15.8 H (12.2-14.9) Sec. INR 1.19 H (0.87-1.13) APTT 166.3 H* (24.2-36.6) Sec. Potassium 3.3 L D (3.6-5.0) mmol/L Creatinine (0.7-1.2) mg/dL Calcium (8.4-10.2) mg/dL AST (5-40) units/L Total Protein (6.3-8.2) g/dL Albumin (3.9-5) g/dL 02/28/18 Range/Units 04:00 RDW (13.2-15.2) % [place] % (Auto) (0.0-7.3) % PT (12.2-14.9) Sec. INR (0.87-1.13) APTT (24.2-36.6) Sec. Potassium 3.5 L (3.6-5.0) mmol/L Creatinine 0.4 L (0.7-1.2) mg/dL Calcium 7.2 L (8.4-10.2) mg/dL AST 187 H (5-40) units/L Total Protein 5.0 L (6.3-8.2) g/dL Albumin 2.2 L (3.9-5) g/dL
[2018-02-28] MEDS: NORCO 5/325 PO PRN (20:55)
[2018-02-28] MEDS: PAMELOR PO SCH (21:06)
[2018-03-01 05:31] LABS: Basophils % (Auto) 0.2 % (0.0-1.8); Eosinophils # (Auto) 0.1 K/mm3 (0.0-0.4); Eosinophils % (Auto) 1.3 % (0.0-4.3); Hematocrit 37.2 % (30.3-42.9); Hemoglobin 12.1 gm/dl (10.1-14.3); Lymphocytes # (Auto) 1.4 K/mm3 (1.2-5.4); Lymphocytes % (Auto) 22.5 % (13.4-35.0); Mean Corpuscular HGB Conc 33 % (30-34); Mean Corpuscular Hemoglobin 30 pg (28-32); Mean Corpuscular Volume 91 fl (79-97); Monocytes # (Auto) 0.5 K/mm3 (0.0-0.8); Monocytes % (Auto) 8.4 % (0.0-7.3); Platelet Count 141 K/mm3 (140-440); Red Blood Count 4.09 M/mm3 (3.65-5.03); Red Cell Distribution Width 15.4 % (13.2-15.2)
[2018-03-01 05:47] LABS: Alanine Aminotransferase 21 units/L (7-56); Albumin 2.2 g/dL (3.9-5); BUN/Creatinine Ratio 18; Blood Urea Nitrogen 7 mg/dL (7-17); Calcium 7.1 mg/dL (8.4-10.2); Hemolysis Index 7
[2018-03-01] MEDS ORDERED: K-DUR PO ONE ×2 (05:58→18:00)
[2018-03-01] MEDS: DILAUDID IV PRN ×4 (08:04→23:33)
--- NOTE | 2018-03-01 09:05 | Progress Note ---
Assessment and Plan Patient is doing well following intervention for her submassive PE. She was placed on lEliquis and will need to remain on Eliquis for the next 6 months. She can be discharged home from a vascular point of view. Subjective Date of service: 03/01/18 Principal diagnosis: Acute PE and DVT Interval history: Patient status post thrombolitic catheter placement and removal with placement of IVC filter secondary to sub-massive pulmonary embolism. She is doing well. O2 sats are 99%. No complete chest pain. She is currently in the ICU however, can be transferred to the floor. Objective - Constitutional Vitals: Vital Signs - 12hr 02/28/18 02/28/18 02/28/18 21:05 21:07 21:09 Temperature Pulse Rate 84 90 81 Pulse Rate [ Right Dorsalis Pedis] Respiratory 18 15 13 Rate Blood Pressure 97/56 97/56 97/56 O2 Sat by Pulse 93 94 94 Oximetry 02/28/18 02/28/18 02/28/18 21:11 21:13 21:15 Temperature Pulse Rate 74 79 80 Pulse Rate [ Right Dorsalis Pedis] Respiratory 17 19 12 Rate Blood Pressure 97/56 97/56 97/56 O2 Sat by Pulse 97 96 97 Oximetry 02/28/18 02/28/18 02/28/18 21:17 21:19 21:21 Temperature Pulse Rate 72 75 81 Pulse Rate [ Right Dorsalis Pedis] Respiratory 15 20 19 Rate Blood Pressure 97/56 97/56 97/56 O2 Sat by Pulse 96 96 97 Oximetry 02/28/18 02/28/18 02/28/18 21:23 21:25 21:27 Temperature Pulse Rate 85 76 73 Pulse Rate [ Right Dorsalis Pedis] Respiratory 10 L 18 13 Rate Blood Pressure 97/56 97/56 101/59 O2 Sat by Pulse 98 99 100 Oximetry 02/28/18 02/28/18 02/28/18 21:29 21:31 21:33 Temperature Pulse Rate 77 92 H 76 Pulse Rate [ Right Dorsalis Pedis] Respiratory 14 18 15 Rate Blood Pressure 101/59 101/59 101/59 O2 Sat by Pulse 100 100 100 Oximetry 02/28/18 02/28/18 02/28/18 21:35 21:37 21:39 Temperature Pulse Rate 80 84 82 Pulse Rate [ Right Dorsalis Pedis] Respiratory 14 16 15 Rate Blood Pressure 101/59 101/59 101/59 O2 Sat by Pulse 100 99 98 Oximetry 02/28/18 02/28/18 02/28/18 21:41 21:43 21:45 Temperature Pulse Rate 93 H 99 H 105 H Pulse Rate [ Right Dorsalis Pedis] Respiratory 15 16 17 Rate Blood Pressure 101/59 101/59 101/59 O2 Sat by Pulse 98 99 98 Oximetry 02/28/18 02/28/18 02/28/18 21:47 21:49 21:51 Temperature Pulse Rate 83 89 87 Pulse Rate [ Right Dorsalis Pedis] Respiratory 15 14 16 Rate Blood Pressure 101/59 101/59 101/59 O2 Sat by Pulse 99 99 99 Oximetry 02/28/18 02/28/18 02/28/18 21:53 21:55 21:57 Temperature Pulse Rate 90 90 83 Pulse Rate [ Right Dorsalis Pedis] Respiratory 17 14 11 L Rate Blood Pressure 101/59 101/59 101/59 O2 Sat by Pulse 99 99 99 Oximetry 02/28/18 02/28/18 02/28/18 21:59 22:01 22:03 Temperature Pulse Rate 96 H 82 91 H Pulse Rate [ Right Dorsalis Pedis] Respiratory 15 14 9 L Rate Blood Pressure 101/59 87/54 87/54 O2 Sat by Pulse 99 98 99 Oximetry 02/28/18 02/28/18 02/28/18 22:05 22:07 22:09 Temperature Pulse Rate 93 H 81 83 Pulse Rate [ Right Dorsalis Pedis] Respiratory 12 10 L 13 Rate Blood Pressure 87/54 87/54 87/54 O2 Sat by Pulse 97 97 98 Oximetry 02/28/18 02/28/18 02/28/18 22:11 22:13 22:15 Temperature Pulse Rate 81 81 81 Pulse Rate [ Right Dorsalis Pedis] Respiratory 13 14 16 Rate Blood Pressure 87/54 87/54 87/54 O2 Sat by Pulse 97 97 97 Oximetry 02/28/18 02/28/18 02/28/18 22:17 22:19 22:21 Temperature Pulse Rate 75 87 79 Pulse Rate [ Right Dorsalis Pedis] Respiratory 20 12 12 Rate Blood Pressure 87/54 87/54 87/54 O2 Sat by Pulse 98 98 98 Oximetry 02/28/18 02/28/18 02/28/18 22:23 22:25 22:27 Temperature Pulse Rate 82 82 84 Pulse Rate [ Right Dorsalis Pedis] Respiratory 9 L 13 11 L Rate Blood Pressure 87/54 87/54 87/54 O2 Sat by Pulse 98 98 100 Oximetry 02/28/18 02/28/18 02/28/18 22:29 22:31 22:33 Temperature Pulse Rate 77 78 75 Pulse Rate [ Right Dorsalis Pedis] Respiratory 15 8 L 11 L Rate Blood Pressure 87/54 87/54 87/54 O2 Sat by Pulse 99 100 100 Oximetry 02/28/18 02/28/18 02/28/18 22:35 22:37 22:39 Temperature Pulse Rate 71 80 74 Pulse Rate [ Right Dorsalis Pedis] Respiratory 9 L 9 L 11 L Rate Blood Pressure 87/54 87/54 87/54 O2 Sat by Pulse 100 99 99 Oximetry 02/28/18 02/28/18 02/28/18 22:41 22:43 22:45 Temperature Pulse Rate 71 75 72 Pulse Rate [ Right Dorsalis Pedis] Respiratory 10 L 10 L 10 L Rate Blood Pressure 87/54 87/54 87/54 O2 Sat by Pulse 100 100 100 Oximetry 02/28/18 02/28/18 02/28/18 22:47 22:49 22:50 Temperature Pulse Rate 75 75 79 Pulse Rate [ Right Dorsalis Pedis] Respiratory 9 L 8 L 12 Rate Blood Pressure 87/54 87/54 87/52 O2 Sat by Pulse 100 99 98 Oximetry 02/28/18 02/28/18 02/28/18 22:51 22:52 22:53 Temperature Pulse Rate 81 72 81 Pulse Rate [ Right Dorsalis Pedis] Respiratory 12 16 17 Rate Blood Pressure 94/51 92/52 92/52 O2 Sat by Pulse 98 98 99 Oximetry 02/28/18 02/28/18 02/28/18 22:55 22:57 22:59 Temperature Pulse Rate 77 77 85 Pulse Rate [ Right Dorsalis Pedis] Respiratory 13 16 15 Rate Blood Pressure 92/52 92/52 92/52 O2 Sat by Pulse 100 100 99 Oximetry 02/28/18 02/28/18 02/28/18 23:00 23:01 23:03 Temperature Pulse Rate 82 85 83 Pulse Rate [ Right Dorsalis Pedis] Respiratory 16 16 11 L Rate Blood Pressure 93/60 93/60 93/60 O2 Sat by Pulse 97 99 98 Oximetry 02/28/18 02/28/18 03/01/18 23:05 23:54 00:07 Temperature 98.0 F Pulse Rate 73 77 Pulse Rate [ Right Dorsalis Pedis] Respiratory 15 8 L Rate Blood Pressure 93/60 83/53 O2 Sat by Pulse 100 99 Oximetry 03/01/18 03/01/18 03/01/18 00:09 00:11 00:13 Temperature Pulse Rate 79 79 77 Pulse Rate [ Right Dorsalis Pedis] Respiratory 10 L 10 L 12 Rate Blood Pressure 83/53 83/53 83/53 O2 Sat by Pulse 100 100 100 Oximetry 03/01/18 03/01/18 03/01/18 00:15 00:17 00:19 Temperature Pulse Rate 78 76 80 Pulse Rate [ Right Dorsalis Pedis] Respiratory 12 8 L 9 L Rate Blood Pressure 83/53 83/53 83/53 O2 Sat by Pulse 99 100 100 Oximetry 03/01/18 03/01/18 03/01/18 00:21 00:23 00:25 Temperature Pulse Rate 74 74 76 Pulse Rate [ Right Dorsalis Pedis] Respiratory 11 L 11 L 11 L Rate Blood Pressure 83/53 83/53 83/53 O2 Sat by Pulse 100 100 100 Oximetry 03/01/18 03/01/18 03/01/18 00:27 00:29 00:31 Temperature Pulse Rate 76 76 86 Pulse Rate [ Right Dorsalis Pedis] Respiratory 10 L 10 L 10 L Rate Blood Pressure 83/53 83/53 83/53 O2 Sat by Pulse 100 100 100 Oximetry 03/01/18 03/01/18 03/01/18 00:33 00:35 00:37 Temperature Pulse Rate 91 H 88 91 H Pulse Rate [ Right Dorsalis Pedis] Respiratory 11 L 9 L 11 L Rate Blood Pressure 83/53 83/53 83/53 O2 Sat by Pulse 100 100 100 Oximetry 03/01/18 03/01/18 03/01/18 00:39 00:41 00:43 Temperature Pulse Rate 86 82 88 Pulse Rate [ Right Dorsalis Pedis] Respiratory 10 L 12 11 L Rate Blood Pressure 83/53 83/53 83/53 O2 Sat by Pulse 100 100 100 Oximetry 03/01/18 03/01/18 03/01/18 00:45 00:47 00:49 Temperature Pulse Rate 93 H 77 79 Pulse Rate [ Right Dorsalis Pedis] Respiratory 11 L 10 L 12 Rate Blood Pressure 83/53 83/53 83/53 O2 Sat by Pulse 100 100 100 Oximetry 03/01/18 03/01/18 03/01/18 00:51 00:53 00:55 Temperature Pulse Rate 77 72 77 Pulse Rate [ Right Dorsalis Pedis] Respiratory 11 L 10 L 10 L Rate Blood Pressure 83/53 83/53 83/53 O2 Sat by Pulse 100 100 100 Oximetry 03/01/18 03/01/18 03/01/18 00:57 00:59 01:00 Temperature Pulse Rate 73 77 79 Pulse Rate [ Right Dorsalis Pedis] Respiratory 9 L 13 9 L Rate Blood Pressure 83/53 83/53 89/50 O2 Sat by Pulse 100 100 100 Oximetry 03/01/18 03/01/18 03/01/18 01:01 01:03 01:05 Temperature Pulse Rate 73 72 78 Pulse Rate [ Right Dorsalis Pedis] Respiratory 9 L 10 L 8 L Rate Blood Pressure 89/50 89/50 89/50 O2 Sat by Pulse 100 100 100 Oximetry 03/01/18 03/01/18 03/01/18 01:07 01:09 01:11 Temperature Pulse Rate 78 80 76 Pulse Rate [ Right Dorsalis Pedis] Respiratory 9 L 8 L 9 L Rate Blood Pressure 89/50 89/50 89/50 O2 Sat by Pulse 100 100 100 Oximetry 03/01/18 03/01/18 03/01/18 01:13 01:15 01:17 Temperature Pulse Rate 76 80 78 Pulse Rate [ Right Dorsalis Pedis] Respiratory 9 L 9 L 9 L Rate Blood Pressure 89/50 89/50 89/50 O2 Sat by Pulse 100 99 100 Oximetry 03/01/18 03/01/18 03/01/18 01:19 01:21 01:22 Temperature Pulse Rate 80 76 80 Pulse Rate [ Right Dorsalis Pedis] Respiratory 8 L 8 L 7 L Rate Blood Pressure 89/50 89/50 83/53 O2 Sat by Pulse 100 100 100 Oximetry 03/01/18 03/01/18 03/01/18 01:23 01:25 01:27 Temperature Pulse Rate 81 81 81 Pulse Rate [ Right Dorsalis Pedis] Respiratory 8 L 9 L 8 L Rate Blood Pressure 89/50 89/50 89/50 O2 Sat by Pulse 100 100 100 Oximetry 03/01/18 03/01/18 03/01/18 01:29 01:31 01:33 Temperature Pulse Rate 80 81 79 Pulse Rate [ Right Dorsalis Pedis] Respiratory 9 L 10 L 10 L Rate Blood Pressure 89/50 89/50 89/50 O2 Sat by Pulse 100 100 99 Oximetry 03/01/18 03/01/18 03/01/18 01:35 01:37 01:39 Temperature Pulse Rate 78 79 74 Pulse Rate [ Right Dorsalis Pedis] Respiratory 10 L 9 L 9 L Rate Blood Pressure 89/50 89/50 89/50 O2 Sat by Pulse 99 100 99 Oximetry 03/01/18 03/01/18 03/01/18 01:41 01:42 03:13 Temperature Pulse Rate 74 72 Pulse Rate [ 79 Right Dorsalis Pedis] Respiratory 10 L 15 10 L Rate Blood Pressure 89/50 95/56 O2 Sat by Pulse 99 97 100 Oximetry 03/01/18 03/01/18 03/01/18 03:15 03:17 03:19 Temperature Pulse Rate 73 71 77 Pulse Rate [ Right Dorsalis Pedis] Respiratory 10 L 9 L 10 L Rate Blood Pressure 95/56 95/56 95/56 O2 Sat by Pulse 100 100 100 Oximetry 03/01/18 03/01/18 03/01/18 03:21 03:23 03:25 Temperature Pulse Rate 71 74 74 Pulse Rate [ Right Dorsalis Pedis] Respiratory 11 L 10 L 10 L Rate Blood Pressure 95/56 95/56 95/56 O2 Sat by Pulse 100 100 100 Oximetry 03/01/18 03/01/18 03/01/18 03:27 03:29 03:31 Temperature Pulse Rate 73 74 71 Pulse Rate [ Right Dorsalis Pedis] Respiratory 10 L 10 L 9 L Rate Blood Pressure 95/56 95/56 95/56 O2 Sat by Pulse 100 100 100 Oximetry 03/01/18 03/01/18 03/01/18 03:33 03:35 03:37 Temperature Pulse Rate 77 70 71 Pulse Rate [ Right Dorsalis Pedis] Respiratory 10 L 10 L 10 L Rate Blood Pressure 95/56 95/56 95/54 O2 Sat by Pulse 100 100 100 Oximetry 03/01/18 03/01/18 03/01/18 03:39 03:41 03:43 Temperature Pulse Rate 67 72 71 Pulse Rate [ Right Dorsalis Pedis] Respiratory 10 L 10 L 10 L Rate Blood Pressure 95/54 95/54 95/54 O2 Sat by Pulse 100 100 100 Oximetry 03/01/18 03/01/18 03/01/18 03:45 03:47 03:49 Temperature Pulse Rate 75 73 74 Pulse Rate [ Right Dorsalis Pedis] Respiratory 10 L 10 L 10 L Rate Blood Pressure 95/54 95/54 95/54 O2 Sat by Pulse 100 100 100 Oximetry 03/01/18 03/01/18 03/01/18 03:51 03:53 03:55 Temperature Pulse Rate 81 74 73 Pulse Rate [ Right Dorsalis Pedis] Respiratory 12 10 L 11 L Rate Blood Pressure 95/54 95/54 95/54 O2 Sat by Pulse 100 100 100 Oximetry 03/01/18 03/01/18 03/01/18 03:57 03:59 04:00 Temperature 98.0 F Pulse Rate 69 70 69 Pulse Rate [ Right Dorsalis Pedis] Respiratory 10 L 10 L 10 L Rate Blood Pressure 95/54 95/54 94/56 O2 Sat by Pulse 99 100 99 Oximetry 03/01/18 03/01/18 03/01/18 04:01 04:03 04:05 Temperature Pulse Rate 70 76 71 Pulse Rate [ Right Dorsalis Pedis] Respiratory 9 L 10 L 10 L Rate Blood Pressure 94/56 94/56 94/56 O2 Sat by Pulse 100 100 100 Oximetry 03/01/18 03/01/18 03/01/18 04:07 04:09 04:11 Temperature Pulse Rate 70 68 72 Pulse Rate [ Right Dorsalis Pedis] Respiratory 10 L 10 L 10 L Rate Blood Pressure 94/56 94/56 94/56 O2 Sat by Pulse 100 100 100 Oximetry 03/01/18 03/01/18 03/01/18 04:13 04:15 04:17 Temperature Pulse Rate 71 71 75 Pulse Rate [ Right Dorsalis Pedis] Respiratory 9 L 10 L 10 L Rate Blood Pressure 94/56 94/56 94/56 O2 Sat by Pulse 100 100 100 Oximetry 03/01/18 03/01/18 03/01/18 04:19 04:21 04:23 Temperature Pulse Rate 72 68 68 Pulse Rate [ Right Dorsalis Pedis] Respiratory 10 L 10 L 11 L Rate Blood Pressure 94/56 94/56 94/56 O2 Sat by Pulse 100 98 100 Oximetry 03/01/18 03/01/18 03/01/18 04:25 04:26 04:27 Temperature Pulse Rate 72 69 72 Pulse Rate [ Right Dorsalis Pedis] Respiratory 10 L 10 L 10 L Rate Blood Pressure 94/56 95/54 94/56 O2 Sat by Pulse 100 100 100 Oximetry 03/01/18 03/01/18 03/01/18 04:29 04:31 04:33 Temperature Pulse Rate 70 71 72 Pulse Rate [ Right Dorsalis Pedis] Respiratory 10 L 10 L 11 L Rate Blood Pressure 94/56 94/56 94/56 O2 Sat by Pulse 100 100 100 Oximetry 03/01/18 03/01/18 03/01/18 04:35 04:37 04:39 Temperature Pulse Rate 74 68 79 Pulse Rate [ Right Dorsalis Pedis] Respiratory 10 L 11 L 10 L Rate Blood Pressure 94/56 94/56 94/56 O2 Sat by Pulse 100 100 100 Oximetry 03/01/18 03/01/18 03/01/18 04:41 04:43 04:45 Temperature Pulse Rate 70 89 77 Pulse Rate [ Right Dorsalis Pedis] Respiratory 10 L 12 12 Rate Blood Pressure 94/56 94/56 94/56 O2 Sat by Pulse 100 100 99 Oximetry 03/01/18 03/01/18 03/01/18 04:47 04:49 04:51 Temperature Pulse Rate 85 78 84 Pulse Rate [ Right Dorsalis Pedis] Respiratory 17 10 L 16 Rate Blood Pressure 94/56 94/56 94/56 O2 Sat by Pulse 98 99 98 Oximetry 03/01/18 03/01/18 03/01/18 04:53 04:55 04:57 Temperature Pulse Rate 76 80 73 Pulse Rate [ Right Dorsalis Pedis] Respiratory 11 L 9 L 13 Rate Blood Pressure 94/56 94/56 94/56 O2 Sat by Pulse 97 97 100 Oximetry 03/01/18 03/01/18 03/01/18 04:59 05:00 05:01 Temperature Pulse Rate 79 72 90 Pulse Rate [ 72 Right Dorsalis Pedis] Respiratory 14 13 16 Rate Blood Pressure 94/56 92/49 92/49 O2 Sat by Pulse 98 94 100 Oximetry 03/01/18 03/01/18 03/01/18 05:03 05:05 05:07 Temperature Pulse Rate 86 73 90 Pulse Rate [ Right Dorsalis Pedis] Respiratory 15 12 16 Rate Blood Pressure 92/49 92/49 92/49 O2 Sat by Pulse 97 99 99 Oximetry 03/01/18 03/01/18 03/01/18 05:09 05:11 05:13 Temperature Pulse Rate 80 71 68 Pulse Rate [ Right Dorsalis Pedis] Respiratory 14 12 12 Rate Blood Pressure 92/49 92/49 92/49 O2 Sat by Pulse 100 99 100 Oximetry 03/01/18 03/01/18 03/01/18 05:15 05:17 05:19 Temperature Pulse Rate 74 71 70 Pulse Rate [ Right Dorsalis Pedis] Respiratory 16 12 13 Rate Blood Pressure 92/49 92/49 92/49 O2 Sat by Pulse 99 98 99 Oximetry 03/01/18 03/01/18 03/01/18 05:21 05:23 05:25 Temperature Pulse Rate 72 85 100 H Pulse Rate [ Right Dorsalis Pedis] Respiratory 12 17 20 Rate Blood Pressure 92/49 92/49 92/49 O2 Sat by Pulse 100 100 99 Oximetry 03/01/18 03/01/18 03/01/18 05:27 05:29 05:31 Temperature Pulse Rate 95 H 79 70 Pulse Rate [ Right Dorsalis Pedis] Respiratory 18 17 12 Rate Blood Pressure 92/49 92/49 92/49 O2 Sat by Pulse 99 99 100 Oximetry 03/01/18 03/01/18 03/01/18 05:33 05:35 05:37 Temperature Pulse Rate 73 74 72 Pulse Rate [ Right Dorsalis Pedis] Respiratory 13 12 11 L Rate Blood Pressure 92/49 92/49 92/49 O2 Sat by Pulse 100 100 100 Oximetry 03/01/18 03/01/18 03/01/18 05:39 05:41 05:43 Temperature Pulse Rate 72 69 78 Pulse Rate [ Right Dorsalis Pedis] Respiratory 11 L 11 L 10 L Rate Blood Pressure 92/49 92/49 92/49 O2 Sat by Pulse 100 100 100 Oximetry 03/01/18 03/01/18 03/01/18 05:45 05:47 05:49 Temperature Pulse Rate 76 69 70 Pulse Rate [ Right Dorsalis Pedis] Respiratory 15 11 L 10 L Rate Blood Pressure 92/49 92/49 92/49 O2 Sat by Pulse 99 100 100 Oximetry 03/01/18 03/01/18 03/01/18 05:51 05:53 05:55 Temperature Pulse Rate 74 70 75 Pulse Rate [ Right Dorsalis Pedis] Respiratory 11 L 11 L 11 L Rate Blood Pressure 92/49 92/49 92/49 O2 Sat by Pulse 100 99 100 Oximetry 03/01/18 03/01/18 03/01/18 05:57 05:59 06:00 Temperature Pulse Rate 69 68 68 Pulse Rate [ Right Dorsalis Pedis] Respiratory 10 L 11 L 10 L Rate Blood Pressure 92/49 92/49 102/59 O2 Sat by Pulse 100 100 100 Oximetry 03/01/18 03/01/18 03/01/18 06:01 06:03 06:05 Temperature Pulse Rate 69 68 77 Pulse Rate [ Right Dorsalis Pedis] Respiratory 10 L 10 L 13 Rate Blood Pressure 102/59 102/59 102/59 O2 Sat by Pulse 100 100 99 Oximetry 03/01/18 03/01/18 03/01/18 06:07 06:09 06:11 Temperature Pulse Rate 72 85 73 Pulse Rate [ Right Dorsalis Pedis] Respiratory 13 15 12 Rate Blood Pressure 102/59 102/59 102/59 O2 Sat by Pulse 99 100 99 Oximetry 03/01/18 03/01/18 03/01/18 06:13 06:15 06:17 Temperature Pulse Rate 76 84 85 Pulse Rate [ Right Dorsalis Pedis] Respiratory 14 18 13 Rate Blood Pressure 102/59 102/59 102/59 O2 Sat by Pulse 99 100 100 Oximetry 03/01/18 03/01/18 03/01/18 06:19 07:00 07:01 Temperature Pulse Rate 79 68 71 Pulse Rate [ Right Dorsalis Pedis] Respiratory 18 10 L 10 L Rate Blood Pressure 102/59 95/63 95/63 O2 Sat by Pulse 100 100 100 Oximetry 03/01/18 03/01/18 03/01/18 07:03 07:05 07:07 Temperature Pulse Rate 69 69 78 Pulse Rate [ Right Dorsalis Pedis] Respiratory 10 L 9 L 11 L Rate Blood Pressure 95/63 95/63 95/63 O2 Sat by Pulse 100 100 100 Oximetry 03/01/18 03/01/18 03/01/18 07:09 07:11 07:13 Temperature Pulse Rate 83 72 68 Pulse Rate [ Right Dorsalis Pedis] Respiratory 11 L 10 L 10 L Rate Blood Pressure 95/63 95/63 95/63 O2 Sat by Pulse 100 100 98 Oximetry 03/01/18 03/01/18 03/01/18 07:15 07:17 07:19 Temperature Pulse Rate 71 71 69 Pulse Rate [ Right Dorsalis Pedis] Respiratory 10 L 10 L 10 L Rate Blood Pressure 95/63 95/63 95/63 O2 Sat by Pulse 99 99 100 Oximetry 03/01/18 03/01/18 03/01/18 07:21 07:23 07:25 Temperature Pulse Rate 71 79 93 H Pulse Rate [ Right Dorsalis Pedis] Respiratory 11 L 11 L 14 Rate Blood Pressure 95/63 95/63 95/63 O2 Sat by Pulse 100 100 100 Oximetry 03/01/18 03/01/18 03/01/18 07:27 07:29 07:31 Temperature Pulse Rate 87 88 90 Pulse Rate [ Right Dorsalis Pedis] Respiratory 12 12 13 Rate Blood Pressure 95/63 95/63 95/63 O2 Sat by Pulse 100 100 100 Oximetry 03/01/18 03/01/18 03/01/18 07:33 07:35 07:37 Temperature Pulse Rate 90 79 78 Pulse Rate [ Right Dorsalis Pedis] Respiratory 12 10 L 13 Rate Blood Pressure 95/63 95/63 95/63 O2 Sat by Pulse 100 100 100 Oximetry 03/01/18 03/01/18 03/01/18 07:39 07:41 07:43 Temperature Pulse Rate 88 87 89 Pulse Rate [ Right Dorsalis Pedis] Respiratory 12 12 13 Rate Blood Pressure 95/63 95/63 95/63 O2 Sat by Pulse 100 100 100 Oximetry 03/01/18 03/01/18 03/01/18 07:45 07:47 07:49 Temperature Pulse Rate 89 83 95 H Pulse Rate [ Right Dorsalis Pedis] Respiratory 13 12 12 Rate Blood Pressure 95/63 95/63 95/63 O2 Sat by Pulse 100 100 100 Oximetry 03/01/18 03/01/18 03/01/18 07:51 07:53 07:55 Temperature Pulse Rate 88 78 75 Pulse Rate [ Right Dorsalis Pedis] Respiratory 12 12 10 L Rate Blood Pressure 95/63 95/63 95/63 O2 Sat by Pulse 100 100 100 Oximetry 03/01/18 03/01/18 03/01/18 07:57 07:59 08:00 Temperature Pulse Rate 83 90 85 Pulse Rate [ Right Dorsalis Pedis] Respiratory 10 L 11 L 15 Rate Blood Pressure 95/63 95/63 99/64 O2 Sat by Pulse 100 100 99 Oximetry 03/01/18 03/01/18 03/01/18 08:01 08:03 08:05 Temperature Pulse Rate 81 88 77 Pulse Rate [ Right Dorsalis Pedis] Respiratory 11 L 10 L 7 L Rate Blood Pressure 99/64 99/64 99/64 O2 Sat by Pulse 100 100 96 Oximetry 03/01/18 03/01/18 03/01/18 08:07 08:09 08:11 Temperature Pulse Rate 79 78 80 Pulse Rate [ Right Dorsalis Pedis] Respiratory 6 L 6 L 8 L Rate Blood Pressure 99/64 99/64 99/64 O2 Sat by Pulse 99 99 99 Oximetry 03/01/18 03/01/18 03/01/18 08:13 08:15 08:17 Temperature Pulse Rate 79 78 79 Pulse Rate [ Right Dorsalis Pedis] Respiratory 7 L 7 L 7 L Rate Blood Pressure 99/64 99/64 99/64 O2 Sat by Pulse 99 99 99 Oximetry 03/01/18 03/01/18 03/01/18 08:19 08:21 08:23 Temperature Pulse Rate 77 79 75 Pulse Rate [ Right Dorsalis Pedis] Respiratory 8 L 9 L 8 L Rate Blood Pressure 99/64 99/64 99/64 O2 Sat by Pulse 99 99 99 Oximetry 03/01/18 03/01/18 03/01/18 08:25 08:27 08:29 Temperature Pulse Rate 77 76 82 Pulse Rate [ Right Dorsalis Pedis] Respiratory 8 L 11 L 9 L Rate Blood Pressure 99/64 99/64 99/64 O2 Sat by Pulse 100 99 99 Oximetry 03/01/18 03/01/18 03/01/18 08:31 08:33 08:35 Temperature Pulse Rate 82 76 73 Pulse Rate [ Right Dorsalis Pedis] Respiratory 6 L 7 L 8 L Rate Blood Pressure 99/64 99/64 99/64 O2 Sat by Pulse 100 99 99 Oximetry General appearance: Present: no acute distress - EENT Eyes: PERRL ENT: hearing intact - Neck Neck: supple, normal ROM - Respiratory Respiratory effort: normal - Cardiovascular Rhythm: regular Extremities: no ischemia - Gastrointestinal General gastrointestinal: Present: deferred - Genitourinary Female genitourinary: deferred - Integumentary Integumentary: clear, warm - Psychiatric Psychiatric: appropriate mood/affect, cooperative - Labs CBC & Chem 7: 03/01/18 04:48 03/01/18 04:48 Labs: Abnormal lab results 03/01/18 03/01/18 Range/Units 04:48 04:48 RDW 15.4 H (13.2-15.2) % Lander % (Auto) 8.4 H (0.0-7.3) % Potassium 2.9 L* (3.6-5.0) mmol/L Carbon Dioxide 32 H (22-30) mmol/L Creatinine 0.4 L (0.7-1.2) mg/dL Calcium 7.1 L (8.4-10.2) mg/dL Total Protein 4.5 L (6.3-8.2) g/dL Albumin 2.2 L (3.9-5) g/dL
[2018-03-01] MEDS: K-DUR PO SCH (10:09)
[2018-03-01] MEDS: FEOSOL PO SCH (10:09)
[2018-03-01] MEDS: NEURONTIN PO SCH ×2 (10:09→23:32)
[2018-03-01] MEDS: LASIX PO SCH (10:09)
[2018-03-01] MEDS: ELIQUIS PO SCH ×2 (10:10→23:33)
[2018-03-01] MEDS: THERAGRAN Tab PO SCH (10:10)
[2018-03-01] MEDS: PRAVACHOL PO SCH (10:11)
--- NOTE | 2018-03-01 11:21 | Progress Note ---
Subjective Date of service: 03/01/18 Principal diagnosis: Acute PE and DVT Objective Vital Signs - 12hr 02/28/18 03/01/18 03/01/18 23:54 00:07 00:09 Temperature 98.0 F Pulse Rate 77 79 Pulse Rate [ Right Dorsalis Pedis] Respiratory 8 L 10 L Rate Blood Pressure 83/53 83/53 O2 Sat by Pulse 99 100 Oximetry 03/01/18 03/01/18 03/01/18 00:11 00:13 00:15 Temperature Pulse Rate 79 77 78 Pulse Rate [ Right Dorsalis Pedis] Respiratory 10 L 12 12 Rate Blood Pressure 83/53 83/53 83/53 O2 Sat by Pulse 100 100 99 Oximetry 03/01/18 03/01/18 03/01/18 00:17 00:19 00:21 Temperature Pulse Rate 76 80 74 Pulse Rate [ Right Dorsalis Pedis] Respiratory 8 L 9 L 11 L Rate Blood Pressure 83/53 83/53 83/53 O2 Sat by Pulse 100 100 100 Oximetry 03/01/18 03/01/18 03/01/18 00:23 00:25 00:27 Temperature Pulse Rate 74 76 76 Pulse Rate [ Right Dorsalis Pedis] Respiratory 11 L 11 L 10 L Rate Blood Pressure 83/53 83/53 83/53 O2 Sat by Pulse 100 100 100 Oximetry 03/01/18 03/01/18 03/01/18 00:29 00:31 00:33 Temperature Pulse Rate 76 86 91 H Pulse Rate [ Right Dorsalis Pedis] Respiratory 10 L 10 L 11 L Rate Blood Pressure 83/53 83/53 83/53 O2 Sat by Pulse 100 100 100 Oximetry 03/01/18 03/01/18 03/01/18 00:35 00:37 00:39 Temperature Pulse Rate 88 91 H 86 Pulse Rate [ Right Dorsalis Pedis] Respiratory 9 L 11 L 10 L Rate Blood Pressure 83/53 83/53 83/53 O2 Sat by Pulse 100 100 100 Oximetry 03/01/18 03/01/18 03/01/18 00:41 00:43 00:45 Temperature Pulse Rate 82 88 93 H Pulse Rate [ Right Dorsalis Pedis] Respiratory 12 11 L 11 L Rate Blood Pressure 83/53 83/53 83/53 O2 Sat by Pulse 100 100 100 Oximetry 03/01/18 03/01/18 03/01/18 00:47 00:49 00:51 Temperature Pulse Rate 77 79 77 Pulse Rate [ Right Dorsalis Pedis] Respiratory 10 L 12 11 L Rate Blood Pressure 83/53 83/53 83/53 O2 Sat by Pulse 100 100 100 Oximetry 03/01/18 03/01/18 03/01/18 00:53 00:55 00:57 Temperature Pulse Rate 72 77 73 Pulse Rate [ Right Dorsalis Pedis] Respiratory 10 L 10 L 9 L Rate Blood Pressure 83/53 83/53 83/53 O2 Sat by Pulse 100 100 100 Oximetry 03/01/18 03/01/18 03/01/18 00:59 01:00 01:01 Temperature Pulse Rate 77 79 73 Pulse Rate [ Right Dorsalis Pedis] Respiratory 13 9 L 9 L Rate Blood Pressure 83/53 89/50 89/50 O2 Sat by Pulse 100 100 100 Oximetry 03/01/18 03/01/18 03/01/18 01:03 01:05 01:07 Temperature Pulse Rate 72 78 78 Pulse Rate [ Right Dorsalis Pedis] Respiratory 10 L 8 L 9 L Rate Blood Pressure 89/50 89/50 89/50 O2 Sat by Pulse 100 100 100 Oximetry 03/01/18 03/01/18 03/01/18 01:09 01:11 01:13 Temperature Pulse Rate 80 76 76 Pulse Rate [ Right Dorsalis Pedis] Respiratory 8 L 9 L 9 L Rate Blood Pressure 89/50 89/50 89/50 O2 Sat by Pulse 100 100 100 Oximetry 03/01/18 03/01/18 03/01/18 01:15 01:17 01:19 Temperature Pulse Rate 80 78 80 Pulse Rate [ Right Dorsalis Pedis] Respiratory 9 L 9 L 8 L Rate Blood Pressure 89/50 89/50 89/50 O2 Sat by Pulse 99 100 100 Oximetry 03/01/18 03/01/18 03/01/18 01:21 01:22 01:23 Temperature Pulse Rate 76 80 81 Pulse Rate [ Right Dorsalis Pedis] Respiratory 8 L 7 L 8 L Rate Blood Pressure 89/50 83/53 89/50 O2 Sat by Pulse 100 100 100 Oximetry 03/01/18 03/01/18 03/01/18 01:25 01:27 01:29 Temperature Pulse Rate 81 81 80 Pulse Rate [ Right Dorsalis Pedis] Respiratory 9 L 8 L 9 L Rate Blood Pressure 89/50 89/50 89/50 O2 Sat by Pulse 100 100 100 Oximetry 03/01/18 03/01/18 03/01/18 01:31 01:33 01:35 Temperature Pulse Rate 81 79 78 Pulse Rate [ Right Dorsalis Pedis] Respiratory 10 L 10 L 10 L Rate Blood Pressure 89/50 89/50 89/50 O2 Sat by Pulse 100 99 99 Oximetry 03/01/18 03/01/18 03/01/18 01:37 01:39 01:41 Temperature Pulse Rate 79 74 74 Pulse Rate [ Right Dorsalis Pedis] Respiratory 9 L 9 L 10 L Rate Blood Pressure 89/50 89/50 89/50 O2 Sat by Pulse 100 99 99 Oximetry 03/01/18 03/01/18 03/01/18 01:42 03:13 03:15 Temperature Pulse Rate 72 73 Pulse Rate [ 79 Right Dorsalis Pedis] Respiratory 15 10 L 10 L Rate Blood Pressure 95/56 95/56 O2 Sat by Pulse 97 100 100 Oximetry 03/01/18 03/01/18 03/01/18 03:17 03:19 03:21 Temperature Pulse Rate 71 77 71 Pulse Rate [ Right Dorsalis Pedis] Respiratory 9 L 10 L 11 L Rate Blood Pressure 95/56 95/56 95/56 O2 Sat by Pulse 100 100 100 Oximetry 03/01/18 03/01/18 03/01/18 03:23 03:25 03:27 Temperature Pulse Rate 74 74 73 Pulse Rate [ Right Dorsalis Pedis] Respiratory 10 L 10 L 10 L Rate Blood Pressure 95/56 95/56 95/56 O2 Sat by Pulse 100 100 100 Oximetry 03/01/18 03/01/18 03/01/18 03:29 03:31 03:33 Temperature Pulse Rate 74 71 77 Pulse Rate [ Right Dorsalis Pedis] Respiratory 10 L 9 L 10 L Rate Blood Pressure 95/56 95/56 95/56 O2 Sat by Pulse 100 100 100 Oximetry 03/01/18 03/01/18 03/01/18 03:35 03:37 03:39 Temperature Pulse Rate 70 71 67 Pulse Rate [ Right Dorsalis Pedis] Respiratory 10 L 10 L 10 L Rate Blood Pressure 95/56 95/54 95/54 O2 Sat by Pulse 100 100 100 Oximetry 03/01/18 03/01/18 03/01/18 03:41 03:43 03:45 Temperature Pulse Rate 72 71 75 Pulse Rate [ Right Dorsalis Pedis] Respiratory 10 L 10 L 10 L Rate Blood Pressure 95/54 95/54 95/54 O2 Sat by Pulse 100 100 100 Oximetry 03/01/18 03/01/18 03/01/18 03:47 03:49 03:51 Temperature Pulse Rate 73 74 81 Pulse Rate [ Right Dorsalis Pedis] Respiratory 10 L 10 L 12 Rate Blood Pressure 95/54 95/54 95/54 O2 Sat by Pulse 100 100 100 Oximetry 03/01/18 03/01/18 03/01/18 03:53 03:55 03:57 Temperature Pulse Rate 74 73 69 Pulse Rate [ Right Dorsalis Pedis] Respiratory 10 L 11 L 10 L Rate Blood Pressure 95/54 95/54 95/54 O2 Sat by Pulse 100 100 99 Oximetry 03/01/18 03/01/18 03/01/18 03:59 04:00 04:01 Temperature 98.0 F Pulse Rate 70 69 70 Pulse Rate [ Right Dorsalis Pedis] Respiratory 10 L 10 L 9 L Rate Blood Pressure 95/54 94/56 94/56 O2 Sat by Pulse 100 99 100 Oximetry 03/01/18 03/01/18 03/01/18 04:03 04:05 04:07 Temperature Pulse Rate 76 71 70 Pulse Rate [ Right Dorsalis Pedis] Respiratory 10 L 10 L 10 L Rate Blood Pressure 94/56 94/56 94/56 O2 Sat by Pulse 100 100 100 Oximetry 03/01/18 03/01/18 03/01/18 04:09 04:11 04:13 Temperature Pulse Rate 68 72 71 Pulse Rate [ Right Dorsalis Pedis] Respiratory 10 L 10 L 9 L Rate Blood Pressure 94/56 94/56 94/56 O2 Sat by Pulse 100 100 100 Oximetry 03/01/18 03/01/18 03/01/18 04:15 04:17 04:19 Temperature Pulse Rate 71 75 72 Pulse Rate [ Right Dorsalis Pedis] Respiratory 10 L 10 L 10 L Rate Blood Pressure 94/56 94/56 94/56 O2 Sat by Pulse 100 100 100 Oximetry 03/01/18 03/01/18 03/01/18 04:21 04:23 04:25 Temperature Pulse Rate 68 68 72 Pulse Rate [ Right Dorsalis Pedis] Respiratory 10 L 11 L 10 L Rate Blood Pressure 94/56 94/56 94/56 O2 Sat by Pulse 98 100 100 Oximetry 03/01/18 03/01/18 03/01/18 04:26 04:27 04:29 Temperature Pulse Rate 69 72 70 Pulse Rate [ Right Dorsalis Pedis] Respiratory 10 L 10 L 10 L Rate Blood Pressure 95/54 94/56 94/56 O2 Sat by Pulse 100 100 100 Oximetry 03/01/18 03/01/18 03/01/18 04:31 04:33 04:35 Temperature Pulse Rate 71 72 74 Pulse Rate [ Right Dorsalis Pedis] Respiratory 10 L 11 L 10 L Rate Blood Pressure 94/56 94/56 94/56 O2 Sat by Pulse 100 100 100 Oximetry 03/01/18 03/01/18 03/01/18 04:37 04:39 04:41 Temperature Pulse Rate 68 79 70 Pulse Rate [ Right Dorsalis Pedis] Respiratory 11 L 10 L 10 L Rate Blood Pressure 94/56 94/56 94/56 O2 Sat by Pulse 100 100 100 Oximetry 03/01/18 03/01/18 03/01/18 04:43 04:45 04:47 Temperature Pulse Rate 89 77 85 Pulse Rate [ Right Dorsalis Pedis] Respiratory 12 12 17 Rate Blood Pressure 94/56 94/56 94/56 O2 Sat by Pulse 100 99 98 Oximetry 03/01/18 03/01/18 03/01/18 04:49 04:51 04:53 Temperature Pulse Rate 78 84 76 Pulse Rate [ Right Dorsalis Pedis] Respiratory 10 L 16 11 L Rate Blood Pressure 94/56 94/56 94/56 O2 Sat by Pulse 99 98 97 Oximetry 03/01/18 03/01/18 03/01/18 04:55 04:57 04:59 Temperature Pulse Rate 80 73 79 Pulse Rate [ Right Dorsalis Pedis] Respiratory 9 L 13 14 Rate Blood Pressure 94/56 94/56 94/56 O2 Sat by Pulse 97 100 98 Oximetry 03/01/18 03/01/18 03/01/18 05:00 05:01 05:03 Temperature Pulse Rate 72 90 86 Pulse Rate [ 72 Right Dorsalis Pedis] Respiratory 13 16 15 Rate Blood Pressure 92/49 92/49 92/49 O2 Sat by Pulse 94 100 97 Oximetry 03/01/18 03/01/18 03/01/18 05:05 05:07 05:09 Temperature Pulse Rate 73 90 80 Pulse Rate [ Right Dorsalis Pedis] Respiratory 12 16 14 Rate Blood Pressure 92/49 92/49 92/49 O2 Sat by Pulse 99 99 100 Oximetry 03/01/18 03/01/18 03/01/18 05:11 05:13 05:15 Temperature Pulse Rate 71 68 74 Pulse Rate [ Right Dorsalis Pedis] Respiratory 12 12 16 Rate Blood Pressure 92/49 92/49 92/49 O2 Sat by Pulse 99 100 99 Oximetry 03/01/18 03/01/18 03/01/18 05:17 05:19 05:21 Temperature Pulse Rate 71 70 72 Pulse Rate [ Right Dorsalis Pedis] Respiratory 12 13 12 Rate Blood Pressure 92/49 92/49 92/49 O2 Sat by Pulse 98 99 100 Oximetry 03/01/18 03/01/18 03/01/18 05:23 05:25 05:27 Temperature Pulse Rate 85 100 H 95 H Pulse Rate [ Right Dorsalis Pedis] Respiratory 17 20 18 Rate Blood Pressure 92/49 92/49 92/49 O2 Sat by Pulse 100 99 99 Oximetry 03/01/18 03/01/18 03/01/18 05:29 05:31 05:33 Temperature Pulse Rate 79 70 73 Pulse Rate [ Right Dorsalis Pedis] Respiratory 17 12 13 Rate Blood Pressure 92/49 92/49 92/49 O2 Sat by Pulse 99 100 100 Oximetry 03/01/18 03/01/18 03/01/18 05:35 05:37 05:39 Temperature Pulse Rate 74 72 72 Pulse Rate [ Right Dorsalis Pedis] Respiratory 12 11 L 11 L Rate Blood Pressure 92/49 92/49 92/49 O2 Sat by Pulse 100 100 100 Oximetry 03/01/18 03/01/18 03/01/18 05:41 05:43 05:45 Temperature Pulse Rate 69 78 76 Pulse Rate [ Right Dorsalis Pedis] Respiratory 11 L 10 L 15 Rate Blood Pressure 92/49 92/49 92/49 O2 Sat by Pulse 100 100 99 Oximetry 03/01/18 03/01/18 03/01/18 05:47 05:49 05:51 Temperature Pulse Rate 69 70 74 Pulse Rate [ Right Dorsalis Pedis] Respiratory 11 L 10 L 11 L Rate Blood Pressure 92/49 92/49 92/49 O2 Sat by Pulse 100 100 100 Oximetry 03/01/18 03/01/18 03/01/18 05:53 05:55 05:57 Temperature Pulse Rate 70 75 69 Pulse Rate [ Right Dorsalis Pedis] Respiratory 11 L 11 L 10 L Rate Blood Pressure 92/49 92/49 92/49 O2 Sat by Pulse 99 100 100 Oximetry 03/01/18 03/01/18 03/01/18 05:59 06:00 06:01 Temperature Pulse Rate 68 68 69 Pulse Rate [ Right Dorsalis Pedis] Respiratory 11 L 10 L 10 L Rate Blood Pressure 92/49 102/59 102/59 O2 Sat by Pulse 100 100 100 Oximetry 03/01/18 03/01/18 03/01/18 06:03 06:05 06:07 Temperature Pulse Rate 68 77 72 Pulse Rate [ Right Dorsalis Pedis] Respiratory 10 L 13 13 Rate Blood Pressure 102/59 102/59 102/59 O2 Sat by Pulse 100 99 99 Oximetry 03/01/18 03/01/18 03/01/18 06:09 06:11 06:13 Temperature Pulse Rate 85 73 76 Pulse Rate [ Right Dorsalis Pedis] Respiratory 15 12 14 Rate Blood Pressure 102/59 102/59 102/59 O2 Sat by Pulse 100 99 99 Oximetry 03/01/18 03/01/18 03/01/18 06:15 06:17 06:19 Temperature Pulse Rate 84 85 79 Pulse Rate [ Right Dorsalis Pedis] Respiratory 18 13 18 Rate Blood Pressure 102/59 102/59 102/59 O2 Sat by Pulse 100 100 100 Oximetry 03/01/18 03/01/18 03/01/18 07:00 07:01 07:03 Temperature Pulse Rate 68 71 69 Pulse Rate [ Right Dorsalis Pedis] Respiratory 10 L 10 L 10 L Rate Blood Pressure 95/63 95/63 95/63 O2 Sat by Pulse 100 100 100 Oximetry 03/01/18 03/01/18 03/01/18 07:05 07:07 07:09 Temperature Pulse Rate 69 78 83 Pulse Rate [ Right Dorsalis Pedis] Respiratory 9 L 11 L 11 L Rate Blood Pressure 95/63 95/63 95/63 O2 Sat by Pulse 100 100 100 Oximetry 03/01/18 03/01/18 03/01/18 07:11 07:13 07:15 Temperature Pulse Rate 72 68 71 Pulse Rate [ Right Dorsalis Pedis] Respiratory 10 L 10 L 10 L Rate Blood Pressure 95/63 95/63 95/63 O2 Sat by Pulse 100 98 99 Oximetry 03/01/18 03/01/18 03/01/18 07:17 07:19 07:21 Temperature Pulse Rate 71 69 71 Pulse Rate [ Right Dorsalis Pedis] Respiratory 10 L 10 L 11 L Rate Blood Pressure 95/63 95/63 95/63 O2 Sat by Pulse 99 100 100 Oximetry 03/01/18 03/01/18 03/01/18 07:23 07:25 07:27 Temperature Pulse Rate 79 93 H 87 Pulse Rate [ Right Dorsalis Pedis] Respiratory 11 L 14 12 Rate Blood Pressure 95/63 95/63 95/63 O2 Sat by Pulse 100 100 100 Oximetry 03/01/18 03/01/18 03/01/18 07:29 07:31 07:33 Temperature Pulse Rate 88 90 90 Pulse Rate [ Right Dorsalis Pedis] Respiratory 12 13 12 Rate Blood Pressure 95/63 95/63 95/63 O2 Sat by Pulse 100 100 100 Oximetry 03/01/18 03/01/18 03/01/18 07:35 07:37 07:39 Temperature Pulse Rate 79 78 88 Pulse Rate [ Right Dorsalis Pedis] Respiratory 10 L 13 12 Rate Blood Pressure 95/63 95/63 95/63 O2 Sat by Pulse 100 100 100 Oximetry 03/01/18 03/01/18 03/01/18 07:41 07:43 07:45 Temperature Pulse Rate 87 89 89 Pulse Rate [ Right Dorsalis Pedis] Respiratory 12 13 13 Rate Blood Pressure 95/63 95/63 95/63 O2 Sat by Pulse 100 100 100 Oximetry 03/01/18 03/01/18 03/01/18 07:47 07:49 07:51 Temperature Pulse Rate 83 95 H 88 Pulse Rate [ Right Dorsalis Pedis] Respiratory 12 12 12 Rate Blood Pressure 95/63 95/63 95/63 O2 Sat by Pulse 100 100 100 Oximetry 03/01/18 03/01/18 03/01/18 07:53 07:55 07:57 Temperature Pulse Rate 78 75 83 Pulse Rate [ Right Dorsalis Pedis] Respiratory 12 10 L 10 L Rate Blood Pressure 95/63 95/63 95/63 O2 Sat by Pulse 100 100 100 Oximetry 03/01/18 03/01/18 03/01/18 07:59 08:00 08:01 Temperature Pulse Rate 90 85 81 Pulse Rate [ Right Dorsalis Pedis] Respiratory 11 L 15 11 L Rate Blood Pressure 95/63 99/64 99/64 O2 Sat by Pulse 100 99 100 Oximetry 03/01/18 03/01/18 03/01/18 08:03 08:05 08:07 Temperature Pulse Rate 88 77 79 Pulse Rate [ Right Dorsalis Pedis] Respiratory 10 L 7 L 6 L Rate Blood Pressure 99/64 99/64 99/64 O2 Sat by Pulse 100 96 99 Oximetry 03/01/18 03/01/18 03/01/18 08:09 08:11 08:13 Temperature Pulse Rate 78 80 79 Pulse Rate [ Right Dorsalis Pedis] Respiratory 6 L 8 L 7 L Rate Blood Pressure 99/64 99/64 99/64 O2 Sat by Pulse 99 99 99 Oximetry 03/01/18 03/01/18 03/01/18 08:15 08:17 08:19 Temperature Pulse Rate 78 79 77 Pulse Rate [ Right Dorsalis Pedis] Respiratory 7 L 7 L 8 L Rate Blood Pressure 99/64 99/64 99/64 O2 Sat by Pulse 99 99 99 Oximetry 03/01/18 03/01/18 03/01/18 08:21 08:23 08:25 Temperature Pulse Rate 79 75 77 Pulse Rate [ Right Dorsalis Pedis] Respiratory 9 L 8 L 8 L Rate Blood Pressure 99/64 99/64 99/64 O2 Sat by Pulse 99 99 100 Oximetry 03/01/18 03/01/18 03/01/18 08:27 08:29 08:31 Temperature Pulse Rate 76 82 82 Pulse Rate [ Right Dorsalis Pedis] Respiratory 11 L 9 L 6 L Rate Blood Pressure 99/64 99/64 99/64 O2 Sat by Pulse 99 99 100 Oximetry 03/01/18 03/01/18 03/01/18 08:33 08:35 08:37 Temperature Pulse Rate 76 73 81 Pulse Rate [ Right Dorsalis Pedis] Respiratory 7 L 8 L 11 L Rate Blood Pressure 99/64 99/64 99/64 O2 Sat by Pulse 99 99 100 Oximetry 03/01/18 03/01/18 03/01/18 08:39 08:41 08:43 Temperature Pulse Rate 79 79 80 Pulse Rate [ Right Dorsalis Pedis] Respiratory 8 L 8 L 8 L Rate Blood Pressure 99/64 99/64 99/64 O2 Sat by Pulse 100 100 100 Oximetry 03/01/18 03/01/18 03/01/18 08:45 08:47 08:49 Temperature Pulse Rate 80 75 82 Pulse Rate [ Right Dorsalis Pedis] Respiratory 9 L 9 L 10 L Rate Blood Pressure 99/64 99/64 99/64 O2 Sat by Pulse 100 100 100 Oximetry 03/01/18 03/01/18 03/01/18 08:51 08:53 08:55 Temperature Pulse Rate 76 73 80 Pulse Rate [ Right Dorsalis Pedis] Respiratory 11 L 8 L 9 L Rate Blood Pressure 99/64 99/64 99/64 O2 Sat by Pulse 100 100 100 Oximetry 03/01/18 03/01/18 03/01/18 08:57 08:59 09:00 Temperature Pulse Rate 82 80 88 Pulse Rate [ Right Dorsalis Pedis] Respiratory 8 L 9 L 9 L Rate Blood Pressure 99/64 99/64 93/60 O2 Sat by Pulse 100 100 98 Oximetry 03/01/18 03/01/18 03/01/18 09:01 09:03 09:04 Temperature Pulse Rate 90 80 78 Pulse Rate [ Right Dorsalis Pedis] Respiratory 11 L 10 L 10 L Rate Blood Pressure 93/60 93/60 94/56 O2 Sat by Pulse 100 100 100 Oximetry 03/01/18 03/01/18 03/01/18 09:05 09:07 09:09 Temperature Pulse Rate 76 82 79 Pulse Rate [ Right Dorsalis Pedis] Respiratory 9 L 15 9 L Rate Blood Pressure 93/60 93/60 93/60 O2 Sat by Pulse 100 100 100 Oximetry 03/01/18 03/01/18 03/01/18 09:11 09:13 09:15 Temperature Pulse Rate 79 89 91 H Pulse Rate [ Right Dorsalis Pedis] Respiratory 9 L 11 L 14 Rate Blood Pressure 93/60 93/60 93/60 O2 Sat by Pulse 100 100 100 Oximetry 03/01/18 03/01/18 03/01/18 09:17 09:18 09:20 Temperature Pulse Rate 80 86 78 Pulse Rate [ Right Dorsalis Pedis] Respiratory 17 12 9 L Rate Blood Pressure 93/60 93/60 93/60 O2 Sat by Pulse 100 99 99 Oximetry 03/01/18 03/01/18 03/01/18 09:22 09:24 09:26 Temperature Pulse Rate 85 90 90 Pulse Rate [ Right Dorsalis Pedis] Respiratory 17 12 14 Rate Blood Pressure 93/60 93/60 93/60 O2 Sat by Pulse 99 99 100 Oximetry 03/01/18 03/01/18 03/01/18 09:28 09:30 09:32 Temperature Pulse Rate 76 85 89 Pulse Rate [ Right Dorsalis Pedis] Respiratory 15 14 16 Rate Blood Pressure 93/60 93/60 93/60 O2 Sat by Pulse 100 98 100 Oximetry 03/01/18 03/01/18 03/01/18 09:34 09:36 09:38 Temperature Pulse Rate 89 76 87 Pulse Rate [ Right Dorsalis Pedis] Respiratory 13 15 14 Rate Blood Pressure 93/60 93/60 93/60 O2 Sat by Pulse 98 100 100 Oximetry 03/01/18 03/01/18 03/01/18 09:39 09:40 09:42 Temperature Pulse Rate 82 77 75 Pulse Rate [ Right Dorsalis Pedis] Respiratory 14 14 12 Rate Blood Pressure O2 Sat by Pulse 99 99 98 Oximetry 03/01/18 03/01/18 03/01/18 09:44 09:46 09:48 Temperature Pulse Rate 71 83 87 Pulse Rate [ Right Dorsalis Pedis] Respiratory 8 L 11 L 15 Rate Blood Pressure O2 Sat by Pulse 99 99 98 Oximetry 03/01/18 03/01/18 03/01/18 09:50 09:52 09:54 Temperature Pulse Rate 74 74 69 Pulse Rate [ Right Dorsalis Pedis] Respiratory 14 12 8 L Rate Blood Pressure 93/60 93/60 93/60 O2 Sat by Pulse 100 99 99 Oximetry 03/01/18 03/01/18 03/01/18 09:56 09:58 10:00 Temperature Pulse Rate 68 69 65 Pulse Rate [ Right Dorsalis Pedis] Respiratory 10 L 8 L 8 L Rate Blood Pressure 93/60 93/60 114/71 O2 Sat by Pulse 100 99 99 Oximetry 03/01/18 03/01/18 03/01/18 10:02 10:04 10:06 Temperature Pulse Rate 68 74 75 Pulse Rate [ Right Dorsalis Pedis] Respiratory 9 L 16 11 L Rate Blood Pressure 114/71 114/71 114/71 O2 Sat by Pulse 99 99 99 Oximetry 03/01/18 03/01/1803/01/18 10:08 10:10 10:12 Temperature Pulse Rate 78 94 H 74 Pulse Rate [ Right Dorsalis Pedis] Respiratory 17 15 15 Rate Blood Pressure 114/71 114/71 114/71 O2 Sat by Pulse 99 100 99 Oximetry 03/01/18 03/01/18 03/01/18 10:14 10:16 10:18 Temperature Pulse Rate 71 76 68 Pulse Rate [ Right Dorsalis Pedis] Respiratory 15 14 9 L Rate Blood Pressure 114/71 114/71 114/71 O2 Sat by Pulse 98 98 99 Oximetry 03/01/18 03/01/18 03/01/18 10:20 10:22 10:24 Temperature Pulse Rate 73 77 69 Pulse Rate [ Right Dorsalis Pedis] Respiratory 11 L 10 L 11 L Rate Blood Pressure 114/71 114/71 114/71 O2 Sat by Pulse 99 100 98 Oximetry 03/01/18 03/01/18 03/01/18 10:26 10:28 10:30 Temperature Pulse Rate 66 69 65 Pulse Rate [ Right Dorsalis Pedis] Respiratory 10 L 9 L 9 L Rate Blood Pressure 114/71 114/71 114/71 O2 Sat by Pulse 100 99 100 Oximetry 03/01/18 03/01/18 10:32 10:34 Temperature Pulse Rate 66 69 Pulse Rate [ Right Dorsalis Pedis] Respiratory 11 L 9 L Rate Blood Pressure 114/71 114/71 O2 Sat by Pulse 99 99 Oximetry Constitutional: asleep, other (obese) Eyes: non-icteric ENT: oropharynx moist Neck: supple, no lymphadenopathy, no JVD Effort: mildly labored Ascultation: Bilateral: clear Cardiovascular: regular rate and rhythm, other (S1,S2, no murmurms, gallops or rubs) Gastrointestinal: normoactive bowel sounds, soft, non-tender, non-distended Integumentary: normal, other (EKOS catherte in right femoral) Extremities: no cyanosis, no edema, pulses normal (with dopplers), no ischemia or petechiae Neurologic: normal mental status, non-focal exam, pupils equal and round, motor strength normal and Psychiatric: mood appropriate, affect normal CBC and BMP: 03/01/18 04:48 03/01/18 04:48 ABG, PT/INR, D-dimer: PT/INR, D-dimer PT 15.8 Sec. (12.2-14.9) H 02/28/18 04:00 INR 1.19 (0.87-1.13) H 02/28/18 04:00 Abnormal lab findings: Abnormal Labs 02/27/18 02/27/18 02/27/18 10:45 10:45 10:[address] [place] % (Auto) Seg Neutrophils % 77.8 H PT INR APTT Fibrinogen Sodium 147 H Potassium 2.6 L* Carbon Dioxide Creatinine 0.5 L Calcium 7.9 L AST Troponin T 0.039 H NT-Pro-B Natriuret Pep 4052 H Total Protein Albumin LDL Cholesterol Direct 45 L 02/27/18 02/27/18 02/28/18 14:45 16:35 04:[address] % (Auto) 7.8 H Seg Neutrophils % PT INR APTT Fibrinogen 197 L Sodium Potassium 3.3 L D Carbon Dioxide Creatinine Calcium AST Troponin T NT-Pro-B Natriuret Pep Total Protein Albumin LDL Cholesterol Direct 02/28/18 02/28/18 03/01/18 04:00 04:00 04:[address] % (Auto) 8.4 H Seg Neutrophils % PT 15.8 H INR 1.19 H APTT 166.3 H* Fibrinogen Sodium Potassium 3.5 L Carbon Dioxide Creatinine 0.4 L Calcium 7.2 L AST 187 H Troponin T NT-Pro-B Natriuret Pep Total Protein 5.0 L Albumin 2.2 L LDL Cholesterol Direct 03/01/18 04:[address] % (Auto) Seg Neutrophils % PT INR APTT Fibrinogen Sodium Potassium 2.9 L* Carbon Dioxide 32 H Creatinine 0.4 L Calcium 7.1 L AST Troponin T NT-Pro-B Natriuret Pep Total Protein 4.5 L Albumin 2.2 L LDL Cholesterol Direct
--- NOTE | 2018-03-01 13:33 | Vascular Lab Report ---
Right Lower Extremity Venous Duplex Study: Reason for Exam: Pain and swelling of the right lower extremity. Comments on the Right: Acute deep venous thrombosis is seen involving the distal superficial femoral vein, popliteal vein, but tibial veins, and several gastrocnemius veins. The remaining veins visualized are freely compressible without evidence of internal echogenicity. Spontaneous and phasic flow is present proximally. Comments on the Left: A limited duplex study was done of the proximal veins of the left lower extremity. All veins visualized are freely compressible without evidence of internal echogenicity. Flow is spontaneous and phasic throughout. No evidence of acute or chronic thrombus is seen in any of the vessels visualized. Impression: Extensive acute deep venous thrombosis involving the distal superficial femoral vein, popliteal vein, tibial veins and gastrocnemius veins of the right lower extremity.
[2018-03-01] MEDS: SODIUM CHLORIDE FLUSH SYRINGE 10 ML IV SCH ×2 (15:35→23:34)
--- NOTE | 2018-03-01 18:37 | Discharge Summary ---
Providers - Providers Date of Admission: 02/27/18 15:25 Date of discharge: 03/01/18 Attending physician: CHAVEZ GRAYSON 02/27/18 12:43 Consult to Physician [CONS] Stat Comment: Consulting Provider: CANDE PARKER Physician Instructions: Reason For Exam: bilat PE, R heart strain, RLE extensive VTE 02/27/18 21:01 Consult to Physician [CONS] Routine Comment: Consulting Provider: ERIC DYER Physician Instructions: Reason For Exam: Acute PE 02/27/18 21:41 Consult to Case Management [CONS] Routine Services Needed at Discharge: Home Health Services Janitor Cleaner 02/27/18 21:42 Consult to Physician [CONS] Routine Comment: Consulting Provider: CASSIA VELAZQUEZ Physician Instructions: Reason For Exam: Troponin elevated 02/28/18 08:58 Consult to Physician [CONS] Urgent Comment: Consulting Provider: YOVANNY RICHARDSON Physician Instructions: Reason For Exam: critical care management 03/01/18 11:21 Physical Therapy Evaluation and Treat [CONS] Routine Comment: deconditioning Reason For Exam: evaluate and treat Hospitalization Condition: Stable Hospital course: - Patient Problems (1) Pulmonary embolism, bilateral Current Visit: Yes Status: Acute Plan to address problem: Patient has bilateral acute pulmonary embolism Patient initiated on IV heparin bolus and IV heparin standard drip. Patient taken to landscape and yardwork laborer for----PULMONARY ANGIOGRAPHY AND PLACEMENT OF BILATERAL THROMBOLYTICS CATHETERS CLINICAL INDICATION: PATIENT WITH SUBMASSIVE PULMONARY EMBOLUS by Dr. Schultz Patient switched to Eliquis To be discharged on Eliquis Date of procedure: 02/28/2018 Pre-operative diagnosis: [place] Pulmonary Embolus Status Post Bilateral Pulmonary Artery Thrombolysis Post-operative diagnosis: Same Procedure(s): 1. Follow-up Bilateral Pulmonary Artery Arteriograms 2. Removal of Bilateral Pulmonary Artery Catheters 3. Placement of [place] IVC Filter 4. Radiologic Supervision With Interpretation (2) Venous thromboembolism (VTE) in patient 61 to 74 years of age Current Visit: Yes Status: Acute Plan to address problem: Patient on IV heparin drip (3) Hypokalemia Current Visit: Yes Status: Acute Plan to address problem: Supplemented (4) Troponin level elevated Current Visit: Yes Status: Acute Plan to address problem: Secondary to right ventricular strain Cardiac ischemia unlikely We'll get cardiology consult (5) Hyperlipidemia Current Visit: Yes Status: Chronic Qualifiers: Hyperlipidemia type: mixed hyperlipidemia Qualified Code(s): E78.2 - Mixed hyperlipidemia Plan to address problem: Continue statins (6) GERD (gastroesophageal reflux disease) Current Visit: Yes Status: Chronic Qualifiers: Esophagitis presence: without esophagitis Qualified Code(s): K21.9 - Gastro -esophageal reflux disease without esophagitis Plan to address problem: continue PPIs (7) Hypertension Current Visit: Yes Status: Chronic Qualifiers: Hypertension type: essential hypertension Qualified Code(s): I10 - Essential (primary) hypertension Plan to address problem: Continue antihypertensives (8) Peripheral neuropathy Current Visit: Yes Status: Chronic Qualifiers: Peripheral neuropathy type: polyneuropathy, unspecified Qualified Code(s): G62.9 - Polyneuropathy, unspecified Plan to address problem: Continue gabapentin (9) Osteoporosis Current Visit: Yes Status: Chronic Qualifiers: Osteoporosis type: age-related Plan to address problem: Continue alendronate every weekly (10) Anemia Current Visit: Yes Status: Chronic Qualifiers: Anemia type: iron deficiency Plan to address problem: continue ferrous sulfate (11) Depression Current Visit: Yes Status: Chronic Qualifiers: Depression Type: unspecified Qualified Code(s): F32.9 - Major depressive disorder, single episode, unspecified Plan to address problem: Continue nortriptyline (12) Lumbar radiculopathy, chronic Current Visit: Yes Status: Chronic Plan to address problem: Continue [place] (13) Elevated brain natriuretic peptide (BNP) level Current Visit: Yes Status: Acute Plan to address problem: We'll get cardiology consult and echocardiogram Disposition: DC TO HOME OR SELFCARE - Discharge Diagnoses (1) Pulmonary embolism, bilateral Status: Acute (2) Venous thromboembolism (VTE) in patient 61 to 74 years of age Status: Acute (3) Hypokalemia Status: Acute (4) Troponin level elevated Status: Acute (5) Hyperlipidemia Status: Chronic Qualifiers: Hyperlipidemia type: mixed hyperlipidemia Qualified Code(s): E78.2 - Mixed hyperlipidemia (6) GERD (gastroesophageal reflux disease) Status: Chronic Qualifiers: Esophagitis presence: without esophagitis Qualified Code(s): K21.9 - Gastro -esophageal reflux disease without esophagitis (7) Hypertension Status: Chronic Qualifiers: Hypertension type: essential hypertension Qualified Code(s): I10 - Essential (primary) hypertension (8) Peripheral neuropathy Status: Chronic Qualifiers: Peripheral neuropathy type: polyneuropathy, unspecified Qualified Code(s): G62.9 - Polyneuropathy, unspecified (9) Osteoporosis Status: Chronic Qualifiers: Osteoporosis type: age-related (10) Anemia Status: Chronic Qualifiers: Anemia type: iron deficiency (11) Depression Status: Chronic Qualifiers: Depression Type: unspecified Qualified Code(s): F32.9 - Major depressive disorder, single episode, unspecified (12) Lumbar radiculopathy, chronic Status: Chronic (13) Elevated brain natriuretic peptide (BNP) level Status: Acute (14) DVT prophylaxis Status: Acute Core Measure Documentation - Palliative Care Palliative Care/ Comfort Measures: Not Applicable - Core Measures Any of the following diagnoses?: none Exam - Physical Exam Narrative exam: Lying in bed in mild distress - Constitutional Vitals: Temp Pulse Resp BP Pulse Ox 98.7 F 95 H 15 141/84 100 03/01/18 17:46 03/01/18 17:14 03/01/18 17:14 03/01/18 17:14 03/01/18 17:12 General appearance: Present: no acute distress, well-nourished - EENT Eyes: Present: PERRL ENT: hearing intact, clear oral mucosa - Neck Neck: Present: supple, normal ROM - Respiratory Respiratory effort: normal Respiratory: bilateral: CTA - Cardiovascular Heart Sounds: Present: S1 & S2. Absent: rub, click - Extremities Extremities: pulses symmetrical, No edema Peripheral Pulses: within normal limits - Abdominal General gastrointestinal: Present: soft, non-tender, non-distended, normal bowel sounds Female genitourinary: Present: normal - Integumentary Integumentary: Present: clear, warm, dry - Musculoskeletal Musculoskeletal: gait normal, strength equal bilaterally - Psychiatric Psychiatric: appropriate mood/affect, intact judgment & insight - Neurologic Neurologic: CNII-XII intact, moves all extremities Plan Activity: no restrictions Follow up with: Emily HUA [Other] - 3-5 Days RAJAN GOVEA MD [Staff Physician] - 7 Days SYL LEYVA MD [Staff Physician] - 7 Days
[2018-03-01] MEDS: PAMELOR PO SCH (23:00)
[2018-03-02] MEDS: PRAVACHOL PO SCH (09:59)
[2018-03-02] MEDS: ELIQUIS PO SCH ×2 (09:59→21:51)
[2018-03-02] MEDS: NEURONTIN PO SCH ×2 (09:59→21:50)
[2018-03-02] MEDS: THERAGRAN Tab PO SCH (09:59)
[2018-03-02] MEDS: LASIX PO SCH (09:59)
[2018-03-02] MEDS: FEOSOL PO SCH (10:00)
[2018-03-02] MEDS: K-DUR PO SCH (10:00)
[2018-03-02] MEDS: SODIUM CHLORIDE FLUSH SYRINGE 10 ML IV SCH ×2 (10:00→21:51)
[2018-03-02] MEDS: DILAUDID IV PRN (12:26)
--- NOTE | 2018-03-02 14:03 | Progress Note ---
Subjective Date of service: 03/02/18 Principal diagnosis: Acute PE and DVT Objective Vital Signs - 12hr 03/02/18 08:03 Temperature 98.3 F Pulse Rate 90 Respiratory 20 Rate Blood Pressure 112/75 O2 Sat by Pulse 97 Oximetry Constitutional: asleep, other (obese) Eyes: non-icteric ENT: oropharynx moist Neck: supple, no lymphadenopathy, no JVD Effort: mildly labored Ascultation: Bilateral: clear Cardiovascular: regular rate and rhythm, other (S1,S2, no murmurms, gallops or rubs) Gastrointestinal: normoactive bowel sounds, soft, non-tender, non-distended Integumentary: normal, other (EKOS catherte in right femoral) Extremities: no cyanosis, no edema, pulses normal (with dopplers), no ischemia or petechiae Neurologic: normal mental status, non-focal exam, pupils equal and round, motor strength normal and Psychiatric: mood appropriate, affect normal CBC and BMP: 03/01/18 04:48 03/01/18 04:48 ABG, PT/INR, D-dimer: PT/INR, D-dimer PT 15.8 Sec. (12.2-14.9) H 02/28/18 04:00 INR 1.19 (0.87-1.13) H 02/28/18 04:00 Abnormal lab findings: Abnormal Labs 02/27/18 02/27/18 02/27/18 10:45 10:45 10:45 RDW 15.3 H [place] % (Auto) Seg Neutrophils % 77.8 H PT INR APTT Fibrinogen Sodium 147 H Potassium 2.6 L* Carbon Dioxide Creatinine 0.5 L Calcium 7.9 L AST Troponin T 0.039 H NT-Pro-B Natriuret Pep 4052 H Total Protein Albumin LDL Cholesterol Direct 45 L 02/27/18 02/27/18 02/28/18 14:45 16:35 04:00 RDW 16.1 H [place] % (Auto) 7.8 H Seg Neutrophils % PT INR APTT Fibrinogen 197 L Sodium Potassium 3.3 L D Carbon Dioxide Creatinine Calcium AST Troponin T NT-Pro-B Natriuret Pep Total Protein Albumin LDL Cholesterol Direct 02/28/18 02/28/18 03/01/18 04:00 04:00 04:48 RDW 15.4 H [place] % (Auto) 8.4 H Seg Neutrophils % PT 15.8 H INR 1.19 H APTT 166.3 H* Fibrinogen Sodium Potassium 3.5 L Carbon Dioxide Creatinine 0.4 L Calcium 7.2 L AST 187 H Troponin T NT-Pro-B Natriuret Pep Total Protein 5.0 L Albumin 2.2 L LDL Cholesterol Direct 03/01/18 04:48 RDW [place] % (Auto) Seg Neutrophils % PT INR APTT Fibrinogen Sodium Potassium 2.9 L* Carbon Dioxide 32 H Creatinine 0.4 L Calcium 7.1 L AST Troponin T NT-Pro-B Natriuret Pep Total Protein 4.5 L Albumin 2.2 L LDL Cholesterol Direct
--- NOTE | 2018-03-02 15:10 | Progress Note ---
Assessment and Plan atient resting on 2 litres O2.Complaining leg pain. No complaint of chest pain or shortness of breath.O2 saturation 100%. Patient diagnosed with PE and venous thromboembolism. - Patient Problems (1) Pulmonary embolism, bilateral Current Visit: Yes Status: Acute Plan to address problem: Patient is on Apixaban (2) Venous thromboembolism (VTE) in patient 61 to 74 years of age Current Visit: Yes Status: Acute Plan to address problem: Patient is on Apixaban (3) Hypertension Current Visit: Yes Status: Chronic Qualifiers: Hypertension type: essential hypertension Qualified Code(s): I10 - Essential (primary) hypertension Plan to address problem: Management as per primary care. (4) GERD (gastroesophageal reflux disease) Current Visit: Yes Status: Chronic Qualifiers: Esophagitis presence: without esophagitis Qualified Code(s): K21.9 - Gastro -esophageal reflux disease without esophagitis Plan to address problem: Patient is on protonix. Subjective Date of service: 03/02/18 Principal diagnosis: Acute PE and DVT Interval history: Patient resting on 2 litres O2.Complaining leg pain. No complaint of chest pain or shortness of breath.O2 saturation 100%. Patient diagnosed with PE and venous thromboembolism. Objective Vital Signs - 12hr 03/02/18 08:03 Temperature 98.3 F Pulse Rate 90 Respiratory 20 Rate Blood Pressure 112/75 O2 Sat by Pulse 97 Oximetry Constitutional: no acute distress, alert, other (obese) Eyes: non-icteric ENT: oropharynx moist Neck: supple, no lymphadenopathy, no JVD Effort: mildly labored Ascultation: Bilateral: diminished breath sounds Cardiovascular: regular rate and rhythm, other (S1,S2, no murmurms, gallops or rubs) Gastrointestinal: normoactive bowel sounds, soft, non-tender, non-distended Integumentary: normal, other (EKOS catherte in right femoral) Extremities: no cyanosis, no edema, pulses normal (with dopplers), no ischemia or petechiae Neurologic: normal mental status, non-focal exam, pupils equal and round, motor strength normal and Psychiatric: mood appropriate, affect normal CBC and BMP: 03/01/18 04:48 03/01/18 04:48 ABG, PT/INR, D-dimer: PT/INR, D-dimer PT 15.8 Sec. (12.2-14.9) H 02/28/18 04:00 INR 1.19 (0.87-1.13) H 02/28/18 04:00 Abnormal lab findings: Abnormal Labs 02/27/18 02/27/18 02/27/18 10:45 10:45 10:45 RDW 15.3 H [place] % (Auto) Seg Neutrophils % 77.8 H PT INR APTT Fibrinogen Sodium 147 H Potassium 2.6 L* Carbon Dioxide Creatinine 0.5 L Calcium 7.9 L AST Troponin T 0.039 H NT-Pro-B Natriuret Pep 4052 H Total Protein Albumin LDL Cholesterol Direct 45 L 02/27/18 02/27/18 02/28/18 14:45 16:35 04:00 RDW 16.1 H [place] % (Auto) 7.8 H Seg Neutrophils % PT INR APTT Fibrinogen 197 L Sodium Potassium 3.3 L D Carbon Dioxide Creatinine Calcium AST Troponin T NT-Pro-B Natriuret Pep Total Protein Albumin LDL Cholesterol Direct 02/28/18 02/28/18 03/01/18 04:00 04:00 04:48 RDW 15.4 H [place] % (Auto) 8.4 H Seg Neutrophils % PT 15.8 H INR 1.19 H APTT 166.3 H* Fibrinogen Sodium Potassium 3.5 L Carbon Dioxide Creatinine 0.4 L Calcium 7.2 L AST 187 H Troponin T NT-Pro-B Natriuret Pep Total Protein 5.0 L Albumin 2.2 L LDL Cholesterol Direct 03/01/18 04:48 RDW [place] % (Auto) Seg Neutrophils % PT INR APTT Fibrinogen Sodium Potassium 2.9 L* Carbon Dioxide 32 H Creatinine 0.4 L Calcium 7.1 L AST Troponin T NT-Pro-B Natriuret Pep Total Protein 4.5 L Albumin 2.2 L LDL Cholesterol Direct Prior PFT's, U/S of legs: report reviewed (Extensive venous thrombosis of right lower extremity.)
--- NOTE | 2018-03-02 18:00 | Progress Note ---
Assessment and Plan - Patient Problems (1) Hypokalemia Current Visit: Yes Status: Acute Plan to address problem: We'll replace IV today. (2) Pulmonary embolism, bilateral Current Visit: Yes Status: Acute Plan to address problem: Awaiting discharge. Awaiting shelter placement. Continue current anticoagulation as were duodenum. No evidence of bleeding. (3) Depression Current Visit: Yes Status: Chronic Qualifiers: Depression Type: unspecified Qualified Code(s): F32.9 - Major depressive disorder, single episode, unspecified (4) GERD (gastroesophageal reflux disease) Current Visit: Yes Status: Chronic Qualifiers: Esophagitis presence: without esophagitis Qualified Code(s): K21.9 - Gastro -esophageal reflux disease without esophagitis (5) Hyperlipidemia Current Visit: Yes Status: Chronic Qualifiers: Hyperlipidemia type: mixed hyperlipidemia Qualified Code(s): E78.2 - Mixed hyperlipidemia Plan to address problem: Continue statin. (6) Osteoporosis Current Visit: Yes Status: Chronic Qualifiers: Osteoporosis type: age-related (7) Peripheral neuropathy Current Visit: Yes Status: Chronic Qualifiers: Peripheral neuropathy type: polyneuropathy, unspecified Qualified Code(s): G62.9 - Polyneuropathy, unspecified History Interval history: Patient discharge has been canceled secondary to was not able to obtain shelter placement today. Most likely will go in a.m. Before making held Hospitalist Physical - Constitutional Vitals: Temp Pulse Resp BP Pulse Ox 97.9 F 98 H 20 104/67 100 03/02/18 15:22 03/02/18 15:22 03/02/18 15:22 03/02/18 15:22 03/02/18 15:22 General appearance: Present: no acute distress, well-nourished - EENT Eyes: Present: PERRL, EOM intact ENT: hearing intact, clear oral mucosa, poor dentition - Neck Neck: Present: supple, normal ROM - Respiratory Respiratory effort: normal Respiratory: bilateral: CTA, rales - Cardiovascular Rhythm: regular - Extremities Extremities: no ischemia, pulses intact, No edema, normal temperature, normal color Peripheral Pulses: within normal limits - Abdominal General gastrointestinal: soft, non-tender, distended, normal bowel sounds - Integumentary Integumentary: Present: clear, warm, dry - Psychiatric Psychiatric: appropriate mood/affect - Neurologic Neurologic: CNII-XII intact, other (generalized weakness) Results - Labs CBC & Chem 7: 03/01/18 04:48 03/01/18 04:48 Labs: Laboratory Last Values WBC 6.4 K/mm3 (4.5-11.0) 03/01/18 04:48 RBC 4.09 M/mm3 (3.65-5.03) 03/01/18 04:48 Hgb 12.1 gm/dl (10.1-14.3) 03/01/18 04:48 Hct 37.2 % (30.3-42.9) 03/01/18 04:48 MCV 91 fl (79-97) 03/01/18 04:48 MCH 30 pg (28-32) 03/01/18 04:48 MCHC 33 % (30-34) 03/01/18 04:48 RDW 15.4 % (13.2-15.2) H 03/01/18 04:48 Plt Count 141 K/mm3 (140-440) 03/01/18 04:48 Lymph % (Auto) 22.5 % (13.4-35.0) 03/01/18 04:48 [place] % (Auto) 8.4 % (0.0-7.3) H 03/01/18 04:48 Eos % (Auto) 1.3 % (0.0-4.3) 03/01/18 04:48 Baso % (Auto) 0.2 % (0.0-1.8) 03/01/18 04:48 Lymph # 1.4 K/mm3 (1.2-5.4) 03/01/18 04:48 [place] # 0.5 K/mm3 (0.0-0.8) 03/01/18 04:48 Eos # 0.1 K/mm3 (0.0-0.4) 03/01/18 04:48 Baso # 0.0 K/mm3 (0.0-0.1) 03/01/18 04:48 Seg Neutrophils % 67.6 % (40.0-70.0) 03/01/18 04:48 Seg Neutrophils # 4.3 K/mm3 (1.8-7.7) 03/01/18 04:48 PT 15.8 Sec. (12.2-14.9) H 02/28/18 04:00 INR 1.19 (0.87-1.13) H 02/28/18 04:00 APTT 166.3 Sec. (24.2-36.6) H* 02/28/18 04:00 Fibrinogen 197 mg/dl (211-480) L 02/27/18 14:45 Sodium 143 mmol/L (137-145) 03/01/18 04:48 Potassium 2.9 mmol/L (3.6-5.0) L* 03/01/18 04:48 Chloride 100.8 mmol/L (98-107) 03/01/18 04:48 Carbon Dioxide 32 mmol/L (22-30) H 03/01/18 04:48 Anion Gap 13 mmol/L 03/01/18 04:48 BUN 7 mg/dL (7-17) 03/01/18 04:48 Creatinine 0.4 mg/dL (0.7-1.2) L 03/01/18 04:48 Estimated GFR > 60 ml/min 03/01/18 04:48 BUN/Creatinine Ratio 18 % 03/01/18 04:48 Glucose 80 mg/dL (65-100) 03/01/18 04:48 Calcium 7.1 mg/dL (8.4-10.2) L 03/01/18 04:48 Total Bilirubin 0.90 mg/dL (0.1-1.2) 03/01/18 04:48 AST 28 units/L (5-40) 03/01/18 04:48 ALT 21 units/L (7-56) 03/01/18 04:48 Alkaline Phosphatase 88 units/L (35-129) 03/01/18 04:48 Troponin T 0.039 ng/mL (0.00-0.029) H 02/27/18 10:45 NT-Pro-B Natriuret Pep 4052 pg/mL (0-900) H 02/27/18 10:45 Total Protein 4.5 g/dL (6.3-8.2) L 03/01/18 04:48 Albumin 2.2 g/dL (3.9-5) L 03/01/18 04:48 Albumin/Globulin Ratio 1.0 % 03/01/18 04:48 Triglycerides 101 mg/dL (2-149) 02/27/18 10:45 Cholesterol 110 mg/dL (50-199) 02/27/18 10:45 LDL Cholesterol Direct 45 mg/dL (50-130) L 02/27/18 10:45 HDL Cholesterol 54 mg/dL (40-59) 02/27/18 10:45 Cholesterol/HDL Ratio 2.03 % 02/27/18 10:45
[2018-03-02] MEDS: PAMELOR PO SCH (21:50)
[2018-03-03] MEDS: NORCO 5/325 PO PRN ×2 (00:27→09:57)
[2018-03-03] MEDS: NEURONTIN PO SCH (09:57)
[2018-03-03] MEDS: K-DUR PO SCH (09:57)
[2018-03-03] MEDS: FEOSOL PO SCH (09:57)
[2018-03-03] MEDS: THERAGRAN Tab PO SCH (09:58)
[2018-03-03] MEDS: ELIQUIS PO SCH (09:58)
[2018-03-03] MEDS: LASIX PO SCH (09:58)
[2018-03-03] MEDS: PRAVACHOL PO SCH (09:59)
[2018-03-03] MEDS: SODIUM CHLORIDE FLUSH SYRINGE 10 ML IV SCH (09:59)
--- NOTE | 2018-03-03 13:40 | Progress Note ---
Assessment and Plan Patient resting on room air. No complaint of chest pain or shortness of breath.O2 saturation 100%. Patient diagnosed with PE and venous thromboembolism. Patient is on Eliquis. - Patient Problems (1) Pulmonary embolism, bilateral Status: Acute Plan to address problem: Patient is on Apixaban (2) Venous thromboembolism (VTE) in patient 61 to 74 years of age Status: Acute Plan to address problem: Patient is on Apixaban (3) Hypertension Status: Chronic Qualifiers: Hypertension type: essential hypertension Qualified Code(s): I10 - Essential (primary) hypertension Plan to address problem: Management as per primary care. (4) GERD (gastroesophageal reflux disease) Status: Chronic Qualifiers: Esophagitis presence: without esophagitis Qualified Code(s): K21.9 - Gastro -esophageal reflux disease without esophagitis Plan to address problem: Patient is on protonix. (5) Hypokalemia Status: Acute Plan to address problem: Supplementing K+ Subjective Date of service: 03/03/18 Principal diagnosis: Acute PE and DVT Interval history: Patient resting on room air. No complaint of chest pain or shortness of breath.O2 saturation 100%. Patient diagnosed with PE and venous thromboembolism. Patient is on Eliquis. Objective Vital Signs - 12hr 03/03/18 03/03/18 05:36 07:19 Temperature 98.3 F 97.9 F Pulse Rate 82 81 Respiratory 20 22 Rate Blood Pressure 120/72 104/68 O2 Sat by Pulse 98 100 Oximetry Constitutional: no acute distress, alert Eyes: non-icteric ENT: oropharynx moist Neck: supple, no lymphadenopathy, no JVD Effort: mildly labored Ascultation: Bilateral: diminished breath sounds Cardiovascular: regular rate and rhythm, other (S1,S2, no murmurms, gallops or rubs) Gastrointestinal: normoactive bowel sounds, soft, non-tender, non-distended Integumentary: normal, other (EKOS catherte in right femoral) Extremities: no cyanosis, no edema, pulses normal (with dopplers), no ischemia or petechiae Neurologic: normal mental status, non-focal exam, pupils equal and round, motor strength normal and Psychiatric: mood appropriate, affect normal CBC and BMP: 03/01/18 04:48 03/01/18 04:48 ABG, PT/INR, D-dimer: PT/INR, D-dimer PT 15.8 Sec. (12.2-14.9) H 02/28/18 04:00 INR 1.19 (0.87-1.13) H 02/28/18 04:00 Abnormal lab findings: Abnormal Labs 02/27/18 02/27/18 02/27/18 10:45 10:45 10:45 RDW 15.3 H [place] % (Auto) Seg Neutrophils % 77.8 H PT INR APTT Fibrinogen Sodium 147 H Potassium 2.6 L* Carbon Dioxide Creatinine 0.5 L Calcium 7.9 L AST Troponin T 0.039 H NT-Pro-B Natriuret Pep 4052 H Total Protein Albumin LDL Cholesterol Direct 45 L 02/27/18 02/27/18 02/28/18 14:45 16:35 04:00 RDW 16.1 H [place] % (Auto) 7.8 H Seg Neutrophils % PT INR APTT Fibrinogen 197 L Sodium Potassium 3.3 L D Carbon Dioxide Creatinine Calcium AST Troponin T NT-Pro-B Natriuret Pep Total Protein Albumin LDL Cholesterol Direct 02/28/18 02/28/18 03/01/18 04:00 04:00 04:48 RDW 15.4 H [place] % (Auto) 8.4 H Seg Neutrophils % PT 15.8 H INR 1.19 H APTT 166.3 H* Fibrinogen Sodium Potassium 3.5 L Carbon Dioxide Creatinine 0.4 L Calcium 7.2 L AST 187 H Troponin T NT-Pro-B Natriuret Pep Total Protein 5.0 L Albumin 2.2 L LDL Cholesterol Direct 03/01/18 04:48 RDW [place] % (Auto) Seg Neutrophils % PT INR APTT Fibrinogen Sodium Potassium 2.9 L* Carbon Dioxide 32 H Creatinine 0.4 L Calcium 7.1 L AST Troponin T NT-Pro-B Natriuret Pep Total Protein 4.5 L Albumin 2.2 L LDL Cholesterol Direct
[2018-03-03 13:45] VITALS: BP 90/62
[2018-03-03] MEDS: DILAUDID IV PRN (14:42)
--- NOTE | 2018-03-03 16:21 | Discharge Summary ---
Providers - Providers Date of Admission: 02/27/18 15:25 Attending physician: CARMEN VELIZ MD 02/27/18 12:43 Consult to Physician [CONS] Stat Comment: Consulting Provider: CANDE PARKER Physician Instructions: Reason For Exam: bilat PE, R heart strain, RLE extensive VTE 02/27/18 21:01 Consult to Physician [CONS] Routine Comment: Consulting Provider: ERIC DYER Physician Instructions: Reason For Exam: Acute PE 02/27/18 21:41 Consult to Case Management [CONS] Routine Services Needed at Discharge: Home Health Services Grinder Set Up Operator Jig 02/27/18 21:42 Consult to Physician [CONS] Routine Comment: Consulting Provider: CASSIA VELAZQUEZ Physician Instructions: Reason For Exam: Troponin elevated 02/28/18 08:58 Consult to Physician [CONS] Urgent Comment: Consulting Provider: YOVANNY RICHARDSON Physician Instructions: Reason For Exam: critical care management 03/01/18 11:21 Physical Therapy Evaluation and Treat [CONS] Routine Comment: deconditioning Reason For Exam: evaluate and treat Hospitalization Condition: Stable Disposition: DC/[place]-03 SNF [facility] [place] Core Measure Documentation - Palliative Care Palliative Care/ Comfort Measures: Not Applicable Exam - Constitutional Vitals: Temp Pulse Resp BP Pulse Ox 97.4 F L 93 H 22 90/62 100 03/03/18 11:57 03/03/18 11:57 03/03/18 11:57 03/03/18 11:56 03/03/18 11:57 Plan Follow up with: Emily HUA [Other] - 3-5 Days SYL LEYVA MD [Staff Physician] - 7 Days RAJAN GOVEA MD [Staff Physician] - 7 Days Prescriptions: ALPRAZolam [Xanax TAB] 0.25 mg PO Q8H PRN #36 tablet PRN Reason: Anxiety Apixaban [Eliquis] 10 mg PO Q12HR #14 tablet Apixaban [Eliquis] 5 mg PO Q12HR #30 tablet HYDROcodone/APAP 5-325 [[place] 5-325 mg TAB] 2 each PO Q6H PRN #14 tablet PRN Reason: Pain, Moderate (4-6)
[2018-03-07] MEDS ORDERED: ELIQUIS PO SCH (10:00)
== END 2018-03-03 18:25 | DRG 166 ==
LOC: ED 08:23 → CATH 15:24 → CC1 15:25 → 3A 03-01 18:16
PROVIDERS: ADMIT Internal Medicine; ATTEND Internal Medicine
PROC: B31T1ZZ Fluoroscopy of Left Pulmonary Artery using Low Osmolar Contrast (ICD-10-PCS; 2018-02-27)
PROC: B31S1ZZ Fluoroscopy of Right Pulmonary Artery using Low Osmolar Contrast (ICD-10-PCS; 2018-02-27)
PROC: 02HR33Z Insertion of Infusion Device into Left Pulmonary Artery, Percutaneous Approach (ICD-10-PCS; 2018-02-27)
PROC: 02HQ33Z Insertion of Infusion Device into Right Pulmonary Artery, Percutaneous Approach (ICD-10-PCS; 2018-02-27)
PROC: 06H03DZ Insertion of Intraluminal Device into Inferior Vena Cava, Percutaneous Approach (ICD-10-PCS; principal; 2018-02-28)
PROC: 02PY33Z Removal of Infusion Device from Great Vessel, Percutaneous Approach (ICD-10-PCS; 2018-02-28)
DX: I26.92 Saddle embolus of pulmonary artery without acute cor pulmonale (principal); J96.01 Acute respiratory failure with hypoxia; I82.411 Acute embolism and thrombosis of right femoral vein; Z68.41 Body mass index [BMI] 40.0-44.9, adult; I82.431 Acute embolism and thrombosis of right popliteal vein; I82.491 Acute embolism and thrombosis of other specified deep vein of right lower extremity; I26.99 Other pulmonary embolism without acute cor pulmonale; K21.9 Gastro-esophageal reflux disease without esophagitis; E87.6 Hypokalemia; E66.01 Morbid (severe) obesity due to excess calories; I10 Essential (primary) hypertension; M19.90 Unspecified osteoarthritis, unspecified site; E78.2 Mixed hyperlipidemia; G62.9 Polyneuropathy, unspecified; M81.0 Age-related osteoporosis without current pathological fracture; D50.9 Iron deficiency anemia, unspecified; F32.9 Major depressive disorder, single episode, unspecified; M54.16 Radiculopathy, lumbar region; Z86.73 Personal history of transient ischemic attack (TIA), and cerebral infarction without residual deficits; Z90.710 Acquired absence of both cervix and uterus; Z71.3 Dietary counseling and surveillance; Z79.899 Other long term (current) drug therapy
CPT/HCPCS: 36415; 37191; 37211; 37214; 51701; 71046; 71275; 80048; 80053; 80061; 83880; 84132; 84484; 85025; 85384; 85610; 85730; 93005; 93010; 93306; 96361; 96365; A9270-GY; C1757; C1769; C1880; C1894; J0690; J1170; J1644; J2001; J2250; J2997; J3010; J3480; J7030; J7040; J7042; J7050; Q9967

== ENCOUNTER 2018-03-27 13:10 | Emergency (ER) | payer MEDICARE ==
--- NOTE | 2018-03-27 14:33 | Emergency Department Report ---
Blank Doc - Documentation Documentation: Patient is a 62-year-old black female who is presenting with leg swelling and dyspnea on exertion. Patient states legs started to swell approximately a month ago. Patient states that her group marketing vp empirically put her on some Lasix over the legs continued to swell. Patient feels a tight sensation. Patient denies chest pain but states that she is short of breath and winded now and is progressively worsening. Patient denies any fevers chills. Patient does have a recent diagnosis of DVT on the right knee is on Trish course currently. Patient just left a rehabilitation facility. Brief physical exam patient does have 3+ edema in bilateral lower extremities. There is a faint zapata in the left lower lung. Otherwise patient is Stable. Patient Be Moved to the Main for Further Workup. Kishan
--- NOTE | 2018-03-27 15:06 | Emergency Department Report ---
ED General Adult HPI - General Chief complaint: Extremity Problem,Nontraumatic Stated complaint: SWOLLEN LEG Time Seen by Provider: 03/27/18 14:00 Source: patient Mode of arrival: Ambulatory Limitations: No Limitations - History of Present Illness Initial comments: 62-year-old woman with recent history of extensive venous thromboembolism with secondary submassive bilateral pulmonary embolism, hospitalized here one month ago, has done fairly well, but has had progressive swelling of both lower extremities, with persistent dyspnea on exertion, and limited ability to ambulate secondary to shortness of breath. She had done well with hospitalization, bilateral pulmonary EKOS treatment, and has spent the past couple of weeks in rehabilitation, but has had continued swelling of both lower extremities, as well as dyspnea on exertion and fatigue. She has localized discomfort, no chest pain, no fever chills or diaphoresis, no cough or congestion. She is relatively asymptomatic otherwise. Onset/Timin -: Gradual, week(s) (4) Severity scale (0 -10): 3 Quality: aching Consistency: constant Improves with: none Worsens with: movement Associated Symptoms: shortness of breath. denies: chest pain, nausea/vomiting, syncope Treatments Prior to Arrival: other (thromboembolism treatment, apixaban, furosemide, potassium replacement) - Related Data Home Medications Medication Instructions Recorded Confirmed Last Taken Alendronate Sodium 70 mg PO QWEEK 07/22/17 02/27/18 02/24/18 Ferrous Sulfate [Feosol 325 MG tab] 325 mg PO QDAY 07/22/17 02/27/18 Unknown Gabapentin 1,200 mg PO HS 07/22/17 02/27/18 Unknown Multivitamin [Multiple Vitamins] 1 each PO DAILY 07/22/17 02/27/18 Unknown Nortriptyline HCl 50 mg PO HS 07/22/17 02/27/18 Unknown Omeprazole 40 mg PO DAILY PRN 07/22/17 02/27/18 Unknown Simvastatin 20 mg PO DAILY 07/22/17 02/27/18 Unknown Furosemide [Lasix TAB] 40 mg PO QDAY 02/27/18 02/27/18 Unknown Gabapentin [Neurontin] 600 mg PO QAM 02/27/18 02/27/18 Unknown Previous Rx's Medication Instructions Recorded Last Taken Type ALPRAZolam [Xanax TAB] 0.25 mg PO Q8H PRN #36 tablet 03/01/18 Unknown Rx Apixaban [Eliquis] 5 mg PO Q12HR #30 tablet 03/01/18 Unknown Rx Apixaban [Eliquis] 10 mg PO Q12HR #14 tablet 03/01/18 Unknown Rx Potassium Chloride [K-Dur] 20 meq PO QDAY tablet 03/01/18 Unknown Rx tiZANidine [Zanaflex] 2 mg PO BID PRN tablet 03/01/18 Unknown Rx HYDROcodone/APAP 5-325 [[place] 2 each PO Q6H PRN #14 tablet 03/03/18 Unknown Rx 5-325 mg TAB] Furosemide [Furosemide ORAL LIQ] 40 mg PO BID #30 ml 03/27/18 Unknown Rx Potassium Chloride [Klor-Con M20] 20 meq PO BID #30 tab.er.prt 03/27/18 Unknown Rx Allergies Allergy/AdvReac Type Severity Reaction Status Date / Time No Known Allergies Allergy Verified 09/28/17 15:45 ED Review of Systems ROS: Stated complaint: SWOLLEN LEG Other details as noted in HPI Comment: All other systems reviewed and negative Constitutional: no symptoms reported ENT: ear pain, throat pain Respiratory: cough, orthopnea, shortness of breath, SOB with exertion (chronic, pre-existing current symptoms, present since previous diagnosis, February 2018) Cardiovascular: dyspnea on exertion, edema (chronic). denies: chest pain Endocrine: no symptoms reported Gastrointestinal: denies: abdominal pain, nausea, vomiting Genitourinary: denies: urgency, dysuria Musculoskeletal: denies: back pain Skin: denies: rash, lesions Neurological: denies: headache, weakness, paresthesias Psychiatric: denies: anxiety, depression Hematological/Lymphatic: as per HPI ED Past Medical Hx - Past Medical History Hx Hypertension: Yes Hx CVA: Yes Hx Congestive Heart Failure: No Hx Diabetes: No Hx Deep Vein Thrombosis: Yes (February 2018, RLE with bilat PE) Hx Pulmonary Embolism: Yes (February 2018, Rx with EKOS, ) Hx Arthritis: Yes Hx Asthma: No Hx COPD: No Hx HIV: No Additional medical history: Low back pain, radicular symptoms, high cholesterol - Surgical History Past Surgical History?: Yes Additional Surgical History: EKOS for bilateral pulmonary emboli; partial hysterectomy; bariatric 2012 bilateral knee replacement surgery - Social History Smoking Status: Former Smoker Substance Use Type: None - Medications Home Medications: Home Medications Medication Instructions Recorded Confirmed Last Taken Type Alendronate Sodium 70 mg PO QWEEK 07/22/17 02/27/18 02/24/18 History Ferrous Sulfate [Feosol 325 MG tab] 325 mg PO QDAY 07/22/17 02/27/18 Unknown History Gabapentin 1,200 mg PO HS 07/22/17 02/27/18 Unknown History Multivitamin [Multiple Vitamins] 1 each PO DAILY 07/22/17 02/27/18 Unknown History Nortriptyline HCl 50 mg PO HS 07/22/17 02/27/18 Unknown History Omeprazole 40 mg PO DAILY PRN 07/22/17 02/27/18 Unknown History Simvastatin 20 mg PO DAILY 07/22/17 02/27/18 Unknown History Furosemide [Lasix TAB] 40 mg PO QDAY 02/27/18 02/27/18 Unknown History Gabapentin [Neurontin] 600 mg PO QAM 02/27/18 02/27/18 Unknown History ALPRAZolam [Xanax TAB] 0.25 mg PO Q8H PRN #36 tablet 03/01/18 Unknown Rx Apixaban [Eliquis] 5 mg PO Q12HR #30 tablet 03/01/18 Unknown Rx Apixaban [Eliquis] 10 mg PO Q12HR #14 tablet 03/01/18 Unknown Rx Potassium Chloride [K-Dur] 20 meq PO QDAY tablet 03/01/18 Unknown Rx tiZANidine [Zanaflex] 2 mg PO BID PRN tablet 03/01/18 Unknown Rx HYDROcodone/APAP 5-325 [[place] 2 each PO Q6H PRN #14 tablet 03/03/18 Unknown Rx 5-325 mg TAB] Furosemide [Furosemide ORAL LIQ] 40 mg PO BID #30 ml 03/27/18 Unknown Rx Potassium Chloride [Klor-Con M20] 20 meq PO BID #30 tab.er.prt 03/27/18 Unknown Rx ED Physical Exam - General Limitations: No Limitations General appearance: in no apparent distress - Head Head exam: Present: atraumatic, normocephalic - Eye Eye exam: Present: PERRL, EOMI - ENT ENT exam: Present: normal exam, mucous membranes moist - Neck Neck exam: Present: normal inspection, full ROM. Absent: tenderness - Respiratory Respiratory exam: Present: normal lung sounds bilaterally, rales (faint posterior Rales, minimal, no rhonchi, no wheezes). Absent: respiratory distress , wheezes, rhonchi, chest wall tenderness - Cardiovascular Cardiovascular Exam: Present: regular rate, normal heart sounds. Absent: systolic murmur, diastolic murmur - GI/Abdominal GI/Abdominal exam: Present: soft, normal bowel sounds. Absent: tenderness - Rectal Rectal exam: Present: deferred - Extremities Exam Extremities exam: Present: full ROM, tenderness (minimal), pedal edema (3+, bilateral, chronic) - Neurological Exam Neurological exam: Present: alert, oriented X3, CN II-XII intact. Absent: motor sensory deficit - Psychiatric Psychiatric exam: Present: normal affect, normal mood - Skin Skin exam: Present: warm, dry, intact, normal color, other (pitting edema, bilateral lower extremities, 3+) ED Course Vital Signs 03/27/18 03/27/18 13:27 14:02 Temperature 36.6 C Pulse Rate 95 H Respiratory 16 20 Rate Blood Pressure 122/76 O2 Sat by Pulse 98 99 Oximetry ED Medical Decision Making - Lab Data Result diagrams: 03/27/18 15:10 03/27/18 15:10 - Radiology Data Radiology results: report reviewed (lungs are clear, no evidence of focal infiltrate, atelectasis, or pulmonary vascular congestion.) - Medical Decision Making This patient has had chronic bilateral lower extremity edema for the past several weeks, since the diagnosis of her venous thromboembolism, which has been relatively little changed, the patient is frustrated that it still persists. Review of chart shows that patient had extensive disease, diagnosis and right lower extremity, likely had disease in left lower extremity as well. There is no evidence of acute heart failure, with clear lung phipps, heart is stable, without gallop or tachycardia, and proBNP is normal with a negative troponin at this visit. Patient's edema is likely chronic, vascular in nature, and it appears the most proximate reason for her visit in the emergency department was because on contacting cardiologists office, they recommended that she have emergency department visit, because she felt she was still having symptoms in her legs, which are relatively unchanged from her discharge from rehabilitation several days ago, and which had persisted all throughout her rehabilitation at about the same level. Patient has no acute findings, no signs of decompensation, is stable for discharge, but we will increase her diuresis, and given that she has borderline potassium, will also increase her potassium replacement as well. She has an appointment with production support developer in 2 days, and this is appropriate time for follow -up. Copies of labs here will be discharged with patient. - Differential Diagnosis heart failure, venous thromboembolism, chronic stasis changes Critical Care Time: No Critical care attestation.: If time is entered above; I have spent that time in minutes in the direct care of this critically ill patient, excluding procedure time. ED Disposition Clinical Impression: Pedal edema, Pulmonary embolism, bilateral, Venous thromboembolism (VTE) in patient 61 to 74 years of age Disposition: DC-01 TO HOME OR SELFCARE Is pt being admited?: No Does the pt Need Aspirin: No Condition: Stable Instructions: Leg Edema (ED) Additional Instructions: We have evaluated you today for swelling of both of her legs. This is a chronic condition, has been present since her diagnosis of blood clots in the legs and in the lungs, and happens when blood flow returning from the legs is restricted, causing backup and increased pressure in the blood vessels, which causes fluid to accumulate in the legs. Laboratory evaluation today is stable, shows no evidence of heart failure, with a normal level of heart distress of BNP level, as well as normal troponin level. Potassium level is borderline low at 3.4, other lab levels are stable. Your protein level is a little bit low, and this can contribute some to fluid buildup in the legs, and this can be reversed if you increase her nutrition, with healthy proteins and meats, which will help build up blood albumin and globulin levels. Your stable to go home, but we will make some minor adjustments to your current treatments. Increase your 40 mg furosemide from once daily to twice daily, and we have written U a new prescription for this. Because furosemide will decreased potassium, we want should increase potassium him a 20 mEq, from once daily to twice daily. We have written a prescription for this as well. Continue your other medications as before Elevate your legs for several hours at a time, but also change positions several times over the day, and this will help the fluid to move around, and to cause her kidneys to increase the amount that you urinate. You have a follow-up appointment with her production support developer in 2 days, then we recommend he keep this appointment. We have given you a copy of your blood work for review by your production support developer. Prescriptions: Furosemide [Furosemide ORAL LIQ] 40 mg PO BID #30 ml Potassium Chloride [Klor-Con M20] 20 meq PO BID #30 tab.er.prt Referrals: PRIMARY CARE, [Primary Care Provider] - 3-5 Days Time of Disposition: 17:22
[2018-03-27 16:29] LABS: Basophils % (Auto) 0.3 % (0.0-1.8); Eosinophils % (Auto) 0.5 % (0.0-4.3); Hematocrit 37.2 % (30.3-42.9); Hemoglobin 12.5 gm/dl (10.1-14.3); Lymphocytes # (Auto) 1.6 K/mm3 (1.2-5.4); Lymphocytes % (Auto) 30.8 % (13.4-35.0); Mean Corpuscular HGB Conc 34 % (30-34); Mean Corpuscular Hemoglobin 30 pg (28-32); Mean Corpuscular Volume 89 fl (79-97); Monocytes # (Auto) 0.5 K/mm3 (0.0-0.8); Monocytes % (Auto) 9.8 % (0.0-7.3); Platelet Count 183 K/mm3 (140-440); Red Blood Count 4.18 M/mm3 (3.65-5.03); Red Cell Distribution Width 14.8 % (13.2-15.2)
--- NOTE | 2018-03-27 16:48 | XRay Report ---
FINAL REPORT PROCEDURE: Chest. TECHNIQUE: AP and lateral views. HISTORY: Dyspnea with exertion. COMPARISON: No prior studies are available for comparison. FINDINGS: The heart and mediastinum appear normal. There is minimal tortuosity of the thoracic aorta. The lungs are clear and well expanded. There are no pleural effusions. The soft tissues and regional skeleton are unremarkable. IMPRESSION: No evidence of acute disease.
[2018-03-27 16:53] LABS: Alanine Aminotransferase 37 units/L (7-56); Albumin 2.3 g/dL (3.9-5); BUN/Creatinine Ratio 30; Blood Urea Nitrogen 15 mg/dL (7-17); Calcium 7.7 mg/dL (8.4-10.2); Hemolysis Index 4
[2018-03-27 17:29] LABS: INR 1.4 (0.87-1.13); Partial Thromboplastin Time 31.9 Sec. (24.2-36.6)
[2018-03-27] MEDS ORDERED: LASIX IV ONE (17:29)
[2018-03-27 17:57] VITALS: BP 123/70
== END 2018-03-27 17:55 | disposition home or self-care (01) ==
LOC: ED 13:10
DX: I82.403 Acute embolism and thrombosis of unspecified deep veins of lower extremity, bilateral (principal); I26.99 Other pulmonary embolism without acute cor pulmonale; I10 Essential (primary) hypertension; M19.90 Unspecified osteoarthritis, unspecified site; Z86.73 Personal history of transient ischemic attack (TIA), and cerebral infarction without residual deficits; Z86.718 Personal history of other venous thrombosis and embolism; Z87.891 Personal history of nicotine dependence; Z90.710 Acquired absence of both cervix and uterus; E78.00 Pure hypercholesterolemia, unspecified
CPT/HCPCS: 36415; 71046; 80053; 83880; 84484; 85025; 85610; 85730; 96374; 99284; J1940

== ENCOUNTER 2018-06-13 14:06 | Emergency (ER) | payer MEDICARE ==
[2018-06-13] MEDS ORDERED: ASPIRIN PO ONE (14:50)
[2018-06-13 16:41] LABS: Basophils # (Auto) 0.1 K/mm3 (0.0-0.1); Basophils % (Auto) 1.1 % (0.0-1.8); Eosinophils % (Auto) 0.1 % (0.0-4.3); Hematocrit 42.7 % (30.3-42.9); Hemoglobin 14.1 gm/dl (10.1-14.3); Lymphocytes # (Auto) 1.4 K/mm3 (1.2-5.4); Lymphocytes % (Auto) 16.2 % (13.4-35.0); Mean Corpuscular HGB Conc 33 % (30-34); Mean Corpuscular Hemoglobin 30 pg (28-32); Mean Corpuscular Volume 92 fl (79-97); Monocytes # (Auto) 0.4 K/mm3 (0.0-0.8); Monocytes % (Auto) 5.3 % (0.0-7.3); Platelet Count 237 K/mm3 (140-440); Red Blood Count 4.66 M/mm3 (3.65-5.03); Red Cell Distribution Width 15.1 % (13.2-15.2)
[2018-06-13 16:42] LABS: Hemolysis Index 22
[2018-06-13 17:16] LABS: BUN/Creatinine Ratio 24; Blood Urea Nitrogen 12 mg/dL (7-17); Calcium 7.6 mg/dL (8.4-10.2)
--- NOTE | 2018-06-13 17:48 | Emergency Department Report ---
Chief Complaint: Chest Pain Stated Complaint: BREATHING PROBLEMS SOB Time Seen by Provider: 06/13/18 16:32 - HPI History of Present Illness: Ms. Caal is a 63 yo female with hx of PE, DVT in February. Has been taking eliquis. Has had dizziness upon standing for past weeks. Has chest pain and "sore stomach". Due to complexity, will need labs and further evaluation. - Exam Vital Signs: Vital Signs 06/13/18 14:47 Temperature 98.0 F Pulse Rate 113 H Respiratory 22 Rate Blood Pressure 115/82 O2 Sat by Pulse 100 Oximetry MSE screening note: Focused history and physical exam performed. Due to findings the following was ordered: ED Disposition for MSE Condition: Stable
--- NOTE | 2018-06-13 19:14 | Emergency Department Report ---
ED Chest Pain HPI - General Chief Complaint: Chest Pain Stated Complaint: BREATHING PROBLEMS SOB Time Seen by Provider: 06/13/18 16:32 Source: patient Mode of arrival: Wheelchair Limitations: No Limitations - History of Present Illness Initial Comments: 63-year-old female with sharp stabbing intermittent chest pain 2-3 days. Patient states pain is in left chest. Also reports shortness of breath with it. Denies nausea, vomiting, diaphoresis. Patient has history of DVT and PE, currently on Eliquis. Patient has swelling to bilateral lower extremities which she states has been present for 3 months since been diagnosed with right leg DVT. Patient states she is on 2 L O2 at home. Patient also reports chronic abdominal pain that has been present since her gastric bypass surgery in September. MD Complaint: chest pain -: days(s) (3) Onset: during rest Pain Location: left chest Pain Radiation: none Severity: moderate Quality: sharp Consistency: intermittent Improves With: nothing Worsens With: nothing re: dyspnea. denies: nausea, vomting, diaphoresis Other Symptoms: leg swelling. denies: cough, fever - Related Data Home Medications Medication Instructions Recorded Confirmed Last Taken Alendronate Sodium 70 mg PO QWEEK 07/22/17 06/13/18 02/24/18 Gabapentin 1,200 mg PO HS 07/22/17 06/13/18 Unknown Multivitamin [Multiple Vitamins] 1 each PO DAILY 07/22/17 06/13/18 Unknown Nortriptyline HCl 50 mg PO HS 07/22/17 06/13/18 Unknown Omeprazole 40 mg PO DAILY PRN 07/22/17 06/13/18 Unknown Simvastatin 20 mg PO HS 07/22/17 06/13/18 Unknown Gabapentin [Neurontin] 600 mg PO QAM 02/27/18 06/13/18 Unknown Albuterol Sulfate [Ventolin HFA] 2 puff IH Q6H PRN 06/13/18 06/13/18 Unknown Cyanocobalamin (Vitamin B-12) 500 mcg PO DAILY 06/13/18 06/13/18 Unknown [Vitamin B-12] Ferrous Sulfate [Iron] 325 mg PO DAILY 06/13/18 06/13/18 Unknown Tizanidine HCl [tiZANidine] 2 mg PO BID PRN 06/13/18 06/13/18 Unknown Previous Rx's Medication Instructions Recorded Last Taken Type ALPRAZolam [Xanax TAB] 0.25 mg PO Q8H PRN #36 tablet 03/01/18 Unknown Rx Potassium Chloride [K-Dur] 20 meq PO QDAY tablet 03/01/18 Unknown Rx Allergies Allergy/AdvReac Type Severity Reaction Status Date / Time No Known Allergies Allergy Verified 09/28/17 15:45 Heart Score - HEART Score History: Slightly suspicious EKG: Normal Age: 45-65 Risk factors: 1-2 risk factors Troponin: < normal limit HEART Score: 2 - Critical Actions Critical Actions: 0-3 pts:0.9-1.7%risk of adverse cardiac event.Candidate for discharge ED Review of Systems ROS: Stated complaint: BREATHING PROBLEMS SOB Other details as noted in HPI Comment: All other systems reviewed and negative Constitutional: denies: chills, fever Respiratory: shortness of breath Cardiovascular: chest pain Gastrointestinal: abdominal pain. denies: nausea, vomiting Musculoskeletal: other (reports BLE swelling) ED Past Medical Hx - Past Medical History Hx Hypertension: Yes Hx CVA: Yes Hx Congestive Heart Failure: No Hx Diabetes: No Hx Deep Vein Thrombosis: Yes (February 2018, RLE with bilat PE) Hx Pulmonary Embolism: Yes (February 2018, Rx with EKOS, ) Hx Arthritis: Yes Hx Asthma: No Hx COPD: No Hx HIV: No Additional medical history: Low back pain, radicular symptoms, high cholesterol - Surgical History Additional Surgical History: EKOS for bilateral pulmonary emboli; partial hysterectomy; bariatric 2012 bilateral knee replacement surgery. Pt. also has hx of Htn and CVA. Pt. uses oxygen PRN. Pt. crying in triage. - Social History Smoking Status: Never Smoker Substance Use Type: None - Medications Home Medications: Home Medications Medication Instructions Recorded Confirmed Last Taken Type Alendronate Sodium 70 mg PO QWEEK 07/22/17 06/13/18 02/24/18 History Gabapentin 1,200 mg PO HS 07/22/17 06/13/18 Unknown History Multivitamin [Multiple Vitamins] 1 each PO DAILY 07/22/17 06/13/18 Unknown History Nortriptyline HCl 50 mg PO HS 07/22/17 06/13/18 Unknown History Omeprazole 40 mg PO DAILY PRN 07/22/17 06/13/18 Unknown History Simvastatin 20 mg PO HS 07/22/17 06/13/18 Unknown History Gabapentin [Neurontin] 600 mg PO QAM 02/27/18 06/13/18 Unknown History ALPRAZolam [Xanax TAB] 0.25 mg PO Q8H PRN #36 tablet 03/01/18 06/13/18 Unknown Rx Potassium Chloride [K-Dur] 20 meq PO QDAY tablet 03/01/18 06/13/18 Unknown Rx Albuterol Sulfate [Ventolin HFA] 2 puff IH Q6H PRN 06/13/18 06/13/18 Unknown History Cyanocobalamin (Vitamin B-12) 500 mcg PO DAILY 06/13/18 06/13/18 Unknown History [Vitamin B-12] Ferrous Sulfate [Iron] 325 mg PO DAILY 06/13/18 06/13/18 Unknown History Tizanidine HCl [tiZANidine] 2 mg PO BID PRN 06/13/18 06/13/18 Unknown History ED Physical Exam - General Limitations: No Limitations General appearance: alert, in no apparent distress - Head Head exam: Present: atraumatic, normocephalic - Eye Eye exam: Present: normal appearance - ENT ENT exam: Present: mucous membranes moist - Neck Neck exam: Present: normal inspection - Respiratory Respiratory exam: Present: normal lung sounds bilaterally. Absent: respiratory distress - Cardiovascular Cardiovascular Exam: Present: regular rate, normal rhythm - GI/Abdominal GI/Abdominal exam: Present: soft, tenderness. Absent: distended - Extremities Exam Extremities exam: Present: other (2+ pitting edema to BLE) - Neurological Exam Neurological exam: Present: alert, oriented X3 - Psychiatric Psychiatric exam: Present: normal affect, normal mood - Skin Skin exam: Present: warm, dry, intact, normal color ED Course Vital Signs 06/13/18 06/13/18 06/13/18 14:47 17:20 17:22 Temperature 98.0 F Pulse Rate 113 H 98 H 95 H Respiratory 22 24 36 H Rate Blood Pressure 115/82 113/94 Blood Pressure [Left] O2 Sat by Pulse 100 94 Oximetry 06/13/18 06/13/18 06/13/18 17:23 17:24 18:00 Temperature Pulse Rate 92 H 92 H 83 Respiratory 35 H 35 H 22 Rate Blood Pressure 113/94 113/94 119/76 Blood Pressure [Left] O2 Sat by Pulse 92 95 96 Oximetry 06/13/18 06/13/1818 19:00 19:41 20:26 Temperature Pulse Rate 90 Respiratory 23 24 16 Rate Blood Pressure 131/86 Blood Pressure [Left] O2 Sat by Pulse 99 Oximetry 06/13/18 21:16 Temperature Pulse Rate 97 H Respiratory 17 Rate Blood Pressure Blood Pressure 116/84 [Left] O2 Sat by Pulse 98 Oximetry ED Medical Decision Making - Lab Data Result diagrams: 06/13/18 14:57 06/13/18 14:57 - EKG Data -: EKG Interpreted by [place] EKG shows normal: sinus rhythm, QRS complexes, ST-T waves Rate: normal - EKG Data Interpretation: other (left axis deviation; abnormal EKG) - Radiology Data Radiology results: report reviewed, image reviewed - Medical Decision Making 63-year-old female presents to ED with complaints of chest pain and shortness of breath. Workup unremarkable for ACS or PE. Troponin negative x3, CT negative for clot. O2 sats nml on room air. EKG unremarkable. Daughter at bedside. States patient has been having ongoing complaints of shortness of breath and dyspnea. Pt has been seen by restaurant associate and is currently on O2 as needed, states her sats will decrease with ambulation. She was given albuterol inhalers also. No respiratory distress at this time. Chest pain improved. Will d/c at this time. Advised follow-up w/ PCP and restaurant associate. Pt has appt scheduled tomorrow w/ vascular physician. - Differential Diagnosis ACS, PE, chest wall pain Critical care attestation.: If time is entered above; I have spent that time in minutes in the direct care of this critically ill patient, excluding procedure time. ED Disposition Clinical Impression: Chest pain Disposition: DC-01 TO HOME OR SELFCARE Is pt being admited?: No Condition: Stable Instructions: Chest Pain (ED) Referrals: PRIMARY CARE, [Primary Care Provider] - 3-5 Days Time of Disposition: 20:47
--- NOTE | 2018-06-13 19:18 | XRay Report ---
FINAL REPORT PROCEDURE: XR CHEST ROUTINE 2V TECHNIQUE: PA and lateral chest radiographs were obtained. CPT 92604 HISTORY: chest pain, SOB, Hx DVT/PE COMPARISON: 03/27/2018. FINDINGS: Heart: Normal. Mediastinum/Vessels: Normal. Lungs/Pleural space: Bilateral lungs are clear. Minimal bilateral pleural effsions are noted. Bony thorax: No acute osseous abnormality. Other: IMPRESSION: Minimal bilateral pleural effusions..
[2018-06-13] MEDS ORDERED: NORCO 5/325 PO ONE (19:26)
--- NOTE | 2018-06-13 20:13 | Cat Scan Report ---
FINAL REPORT PROCEDURE: CT ANGIO CHEST TECHNIQUE: Computerized tomographic angiography of the chest was performed after the IV injection of iodinated nonionic contrast including image processing. The image data was postprocessed using 2-dimensional multiplanar reformatted (MPR) and 3-dimensional (MIP and/or volume rendered) techniques. HISTORY: chest pain dizziness hx of PE COMPARISON: No prior studies are available for comparison. FINDINGS: Bilateral pulmonary arteries and their branches demonstrate normal opacification without filling defects. Aorta is of normal caliber without evidence of dissection. Hilar structures are within normal limits. There is no lymphadenopathy. An 8 millimeter hypodense nodule is noted in the left lobe thyroid. Minimal right-sided and mild degree left-sided pleural effusions are noted. There are no infiltrates or mass lesions. Multiple small calcified nodules are noted in the spleen consistent with old healed granulomas. Gallbladder demonstrates 2.6 by 2.2 centimeter calculus in the body. 1.0 centimeter calculus is noted in the gallbladder fundus. Vertebral height is normal. Moderate degree subcutaneous fat induration is identified predominantly posteriorly. IMPRESSION: No evidence of pulmonary embolism. No acute pulmonary infiltrates Minimal right-sided and mild degree left-sided pleural effusions. Cholelithiasis without any CT evidence of cholecystitis. Subcutaneous fat induration most likely represents a generalized edema. Small hypodense nodule left lobe thyroid.
[2018-06-13 21:17] VITALS: BP 116/84
== END 2018-06-13 21:16 | disposition home or self-care (01) ==
LOC: ED 14:06
DX: R07.89 Other chest pain (principal); I10 Essential (primary) hypertension; M19.90 Unspecified osteoarthritis, unspecified site; E78.00 Pure hypercholesterolemia, unspecified; Z86.73 Personal history of transient ischemic attack (TIA), and cerebral infarction without residual deficits; Z86.718 Personal history of other venous thrombosis and embolism; Z86.711 Personal history of pulmonary embolism; Z90.711 Acquired absence of uterus with remaining cervical stump
CPT/HCPCS: 36415; 71046; 71275; 80048; 83880; 84484; 85025; 93005; 93010; 99285; Q9967